=== PATIENT | male | born 1975 | race Caucasian/White ===

== ENCOUNTER → 2020-08-11 10:58 | Outpatient (BNVA) | payer BC, SELFPAY | PROVIDERS: PCP Internal Medicine; Visit Provider Surgery | DX: Z76.89 Persons encountering health services in other specified circumstances (principal) ==

== ENCOUNTER → 2020-08-16 14:43 | Outpatient (BNVA) | payer BC, SELFPAY | PROVIDERS: PCP Internal Medicine; Visit Provider Surgery | DX: Z76.89 Persons encountering health services in other specified circumstances (principal) ==

== ENCOUNTER 2020-10-08 17:52 | Emergency (ER) | payer BC, SELFPAY | END 2020-10-08 18:59 | disposition left against medical advice (07) | PROVIDERS: Emergency Provider Emergency Medicine | DX: R10.9 Unspecified abdominal pain (principal) ==

== ENCOUNTER 2020-10-09 01:17 | Inpatient (IN) | payer BC, SELFPAY ==
[2020-10-09] VITALS (11 sets, daily range): BP systolic 110–148; BP diastolic 66–87; PULSE 50–57; RESP 12–20; TEMP 36.1–36.8; O2SAT 96–100; BMI 26.9
--- NOTE | 2020-10-09 02:12 | ECG_ITS ---
Test Reason : ABDOMINAL PAIN Blood Pressure : / mmHG Vent. Rate : 056 BPM Atrial Rate : 056 BPM P-R Int : 150 ms QRS Dur : 104 ms QT Int : 428 ms P-R-T Axes : 084 052 022 degrees QTc Int : 413 ms Sinus bradycardia Possible Left atrial enlargement Borderline ECG When compared with ECG of 16-JAN-2008 03:59, Vent. rate has decreased BY [address] elevation has replaced ST depression in Lateral leads T wave inversion less evident in Inferior leads T wave inversion no longer evident in Lateral leads Referred By: Gricel Brunner Electronically Signed By:ADIS CAMACHO
--- NOTE | 2020-10-09 02:12 | US_ITS ---
EXAMINATION: ABDOMINAL ULTRASOUND LIMITED CLINICAL INFORMATION: Right upper quadrant and epigastric pain. COMPARISON: None. TECHNIQUE: Real-time imaging of the right upper quadrant abdominal viscera. FINDINGS: PANCREAS: The visualized pancreatic head and body are normal in appearance. The remainder of the pancreas is obscured from visualization by the overlying bowel gas. LIVER: The liver is of normal size and echogenicity without focal lesions nor intrahepatic biliary ductal dilation. GALLBLADDER: There are calculi within the gallbladder lumen. In addition, there is echogenic bile. There is a focal area of gallbladder wall thickening measuring approximately 5 mm. There is no pericholecystic fluid. COMMON BILE DUCT: Normal in caliber measuring 0.4 cm in diameter. RIGHT KIDNEY: Normal. No hydronephrosis. No renal calculi or focal parenchymal lesions. The kidney measures 11.2 cm in maximum dimension. FREE FLUID: None. US/US abdomen limited IMPRESSION: Cholelithiasis with focal gallbladder wall thickening, though there is no demonstrable pericholecystic fluid.
--- NOTE | 2020-10-09 02:12 | ED_ITS ---
HPI - Abdominal Pain General Chief Complaint: Abdominal Pain Stated Complaint: ABD PAIN Time Seen by Provider: 10/09/20 02:11 Source: patient Mode of arrival: ambulatory History of Present Illness HPI narrative: This is a 44-year-old male who presents with 2 days significant right upper quadrant pain/epigastric pain, nonradiating that typically starts 2 hours after consuming a meal and is associated with significant nausea but no vomiting and patient also denies any fever, chills but is having some diarrhea. Otherwise, he denies shortness of breath, chest pain/palpitations, urinary pain/burning/frequency. Patient states that the pain is improving at present. Related Data Home Medications Medication Instructions Recorded Confirmed aspirin 81 mg tablet,delayed 81 mg PO DAILY 08/11/20 10/09/20 release atorvastatin 80 mg tablet 80 mg PO DAILY 08/11/20 10/09/20 cholestyramine (with sugar) 4 gram 1 g PO BID 08/11/20 10/09/20 oral powder lisinopril 10 mg tablet 10 mg PO DAILY 08/11/20 10/09/20 metoprolol succinate 50 mg 50 mg PO DAILY 08/11/20 10/09/20 tablet,extended release 24 hr sildenafil 1 tab PO DAILY PRN 10/09/20 10/09/20 Allergies Allergy/AdvReac Type Severity Reaction Status Date / Time No Known Allergies Allergy Verified 08/11/20 11:14 [No Known Allergies*] Review of Systems Review of Systems Pertinent positives and negatives as stated in HPI and 10 point review of systems is otherwise negative. Physical Exam Vital Signs: Vital Signs: Last Vital Signs Temp 97.7 F 10/09/20 01:24 Pulse 56 10/09/20 04:00 Resp 12 10/09/20 04:00 BP 123/84 10/09/20 04:00 Pulse Ox 96 10/09/20 04:00 Body Mass Index 26.9 VITAL SIGNS: Reviewed. GENERAL: Well developed, well nourished, in no acute distress. HEAD: Normocephalic/atraumatic, OROPHARYNX: no oral lesions noted, posterior pharynx clear and non-erythematous without noted tonsillar enlargement/erythema/exudates NECK: Supple, no adenopathy LUNGS: Normal breath sounds. No adventitious sounds or accessory muscle use. SpO2<100> CARDIOVASCULAR: Regular rate and rhythm without noted murmurs, no JVD or lower extremity edema. ABDOMEN: Soft, mild tenderness at epigastrium and right upper quadrant without rebound/Riley's, non-distended with bowel sounds. No rigidity. No guarding. No palpable masses or hernias noted MUSCULOSKELETAL: No tenderness, deformities, or effusions noted on gross inspection. EXTREMITIES: No cyanosis, clubbing or edema. SKIN: Inspection of the skin reveals no rashes, ulcerations, jaundice, pallor, or petechiae. NEUROLOGIC: Alert and oriented x 4. . Course Course Course Narrative: This is a 44-year-old male with history and clinical presentation suggestive of possible cholecystitis, choledocholithiasis, biliary pancreatitis, gastritis. -labs, UA, EKG On review of all investigations the combination of elevated LFTs in conjunction with lipase and CT findings of gallbladder wall thickening/stones/pericholecystic fluid patient has most likely biliary duran creatitis/cholecystitis. He will be admitted and was informed of all results and findings. Reevaluation(s) Reevaluation #1: Discussed the case with Dr. Jacobsen who agrees that possibly there was an obstruction that has since resolved, but states that there are ERCP resources and recommends MRCP tomorrow. Time: 04:09 Reevaluation #2: Discussed the case with Dr Wray who will admit the patient. Time: 04:35 MDM - Abdominal Pain Lab Data Result diagrams: 10/09/20 02:23 10/09/20 02:22 Labs: Lab Results 10/09/20 10/09/20 10/09/20 Range/Units 02:22 02:23 04:14 WBC 4.9 (4.8-10.8) X10*3/uL RBC 5.11 (4.60-5.80) X10*6/uL Hgb 15.0 (14.0-18.0) g/dl Hct 45.1 (42-52) % MCV 88.3 (80-98) fL MCH 29.4 (27.0-33.0) pg MCHC 33.3 (31.0-36.0) g/dl RDW 11.7 (11.0-16.0) % Plt Count 172 (160-400) X10*3/uL MPV 9.8 (9.4-12.4) fL Immature Gran % (Auto) 0.2 (0.0-0.4) % Neut % (Auto) 68.2 (45-73) % Lymph % (Auto) 15.8 L (20-40) % [place] % (Auto) 12.1 H (2-11) % Eos % (Auto) 2.7 (0-4) % Baso % (Auto) 1.0 (0-2) % Lymph # (Auto) 0.8 L (1.2-4.9) X10*3/uL [place] # (Auto) 0.6 (0.1-1.2) X10*3/uL Eos # (Auto) 0.1 (0.0-0.4) X10*3/uL Baso # (Auto) 0.1 (0.0-0.2) X10*3/uL Abs Immat Gran (auto) 0.01 (0.00-0.03) X10*3/uL Absolute Neuts (auto) 3.3 (2.0-8.3) X10*3/uL Absolute Nucleated RBC 0.000 (0.0-0.012) X10*3/uL Nucleated RBC % (auto) 0.0 (0.0-0.2) /100WBC Sodium 139 (135-145) mmol/L Potassium 4.0 (3.3-5.1) mmol/l Chloride 105 (96-108) mmol/L Carbon Dioxide 24 (22-29) mmol/L Anion Gap 14 (12-20) BUN 20 H (9-16) mg/dL Creatinine 1.07 (0.5-1.4) mg/dL Estim Creat Clear Calc 96.6 Estimated GFR > 60 Random Glucose 100 (60-115) mg/dL Calcium 8.6 (8.4-10.2) mg/dL Total Bilirubin 2.9 H (0.0-1.0) mg/dL AST 600 H (5-37) U/L ALT 671 H (0-40) U/L Alkaline Phosphatase 145 H (39-117) U/L Total Protein 6.5 (6.5-8.0) g/dL Albumin 3.9 (3.5-5.0) g/dL Lipase 91 H (8-78) U/L COVID-19 (CIELO) Negative (Negative) COVID-19 Clin Com See Note ECG Data Attestation: I personally reviewed and interpreted this ECG as follows: Prior ECG tracings: available for review (11/27/2019) Interpretation: Sinus bradycardia, HR-56, no evidence of acute ischemia, UT/QTC are within Discharge Plan Discharge Clinical Impression: Cholecystitis Pancreatitis Qualifiers: Chronicity: acute Pancreatitis type: biliary Acute pancreatitis complication: no infection or necrosis Qualified Code(s): K85.10 - Biliary acute pancreatitis without necrosis or infection Patient Disposition: Admitted As Inpatient [facility] Past Medical History Source: nursing notes reviewed Medical History Asthma GERD (gastroesophageal reflux disease) HTN (hypertension) Neck fracture Surgical History H/O left inguinal hernia repair History of appendectomy Social History Social History Alcohol intake: former Smoking Status: Former smoker Smoked in Last 30 Days: No Use of substances other than those prescribed or required for medical reasons: Yes Substance Use Type: Marijuana Advance Directives: No
[2020-10-09 02:30] LABS: Basophils Absolute Auto 0.1 X10*3/uL (0.0-0.2); Eosinophils Absolute Auto 0.1 X10*3/uL (0.0-0.4); Eosinophils Percent Auto 2.7 % (0-4); Hematocrit 45.1 % (42-52); Imm Gran Abs Auto 0.01 X10*3/uL (0.00-0.03); Imm Gran Pct Auto 0.2 % (0.0-0.4); Lymphocytes Absolute Auto 0.8 X10*3/uL (1.2-4.9); Lymphocytes Percent Auto 15.8 % (20-40); MANUAL DIFF FLAG NO; Mean Corpuscular HGB Conc 33.3 g/dl (31.0-36.0); Mean Corpuscular Hemoglobin 29.4 pg (27.0-33.0); Mean Corpuscular Volume 88.3 fL (80-98); Mean Platelet Volume 9.8 fL (9.4-12.4); Monocytes Absolute Auto 0.6 X10*3/uL (0.1-1.2); Monocytes Percent Auto 12.1 % (2-11); Neutrophils Absolute Auto 3.3 X10*3/uL (2.0-8.3); Neutrophils Percent Auto 68.2 % (45-73); Platelet Count 172 X10*3/uL (160-400); Red Blood Count 5.11 X10*6/uL (4.60-5.80); Red Cell Distribution Width 11.7 % (11.0-16.0); White Blood Count 4.9 X10*3/uL (4.8-10.8)
[2020-10-09 02:57] LABS: Alanine Aminotransferase 671 U/L (0-40); Albumin Level 3.9 g/dL (3.5-5.0); Alkaline Phosphatase 145 U/L (39-117); Anion Gap 14 (12-20); Aspartate Amino Transferase 600 U/L (5-37); Bilirubin Total 2.9 mg/dL (0.0-1.0); Blood Urea Nitrogen 20 mg/dL (9-16); Calcium 8.6 mg/dL (8.4-10.2); Carbon Dioxide 24 mmol/L (22-29); Chloride 105 mmol/L (96-108); Creatinine Clr Calc Pharmacy 96.6; Estimated Glomerular Filt Rate > 60; Glucose Random 100 mg/dL (60-115); Sodium 139 mmol/L (135-145); Total Protein 6.5 g/dL (6.5-8.0)
[2020-10-09 03:11] LABS: Lipase 91 U/L (8-78)
[2020-10-09] MEDS: HYDROmorphone HCl 0.5 MG/0.5 ML SYRINGE 0.25 MG IVPUSH (03:30)
--- NOTE | 2020-10-09 03:38 | CT_ITS ---
EXAMINATION: CT ABDOMEN AND PELVIS WITH CONTRAST CLINICAL INFORMATION: Right upper quadrant pain. COMPARISON: Same day ultrasound. TECHNIQUE: Contiguous axial thin section helical images of the abdomen and pelvis were performed following the administration of 85 mL of intravenous Omnipaque 3-50. The data set was reformatted in the coronal and sagittal planes and reviewed on an independent workstation. DLP: 585 mGy-cm. FINDINGS: The visualized lung bases are clear. The visualized portions of the heart are unremarkable. The liver is of normal size and attenuation without focal lesions nor intrahepatic biliary ductal dilation. There are a few small calculi within the gallbladder lumen. There is mild wall thickening measuring 4 mm. There is trace adjacent pericholecystic fluid. The spleen, pancreas, adrenal glands are unremarkable. Both kidneys are of normal size and attenuation without hydronephrosis or nephrolithiasis. Following the administration of IV contrast, prompt symmetric nephrograms are displayed. There is no abdominal free fluid. There is neither mesenteric nor retroperitoneal lymphadenopathy. Normal unopacified loops of small and large bowel are identified. There is no pelvic free fluid. The urinary bladder is unremarkable. There is neither pelvic nor inguinal lymphadenopathy. Bone windows: Neither sclerotic nor lytic bone lesions are identified. CT/CT abdomen pelvis w con IMPRESSION: Cholelithiasis with mild gallbladder wall thickening and a small amount of pericholecystic free fluid. Automated exposure control (Care Dose) Adjustment of the mA and/or kv according to patient size (this includes techniques or standardized protocols for targeted exams where dose is matched to indication / reason for exam; i.e. extremities or head).
[2020-10-09] MEDS: iohexoL 350 MG/ML 100 ML INFUS..BTL 85 ML IV (04:01)
[2020-10-09] MEDS: 0.9 % Sodium Chloride 1,000 ML 999 ML IV (04:12)
[2020-10-09 04:32] LABS: COVID-19 Test Negative (Negative)
[2020-10-09] MEDS: HYDROmorphone HCl 0.5 MG/0.5 ML SYRINGE IVPUSH ×4 (04:46→18:33)
[2020-10-09] MEDS: Piperacillin Sodium/Tazobactam 3.375 GM in 0.9 % Sodium Chloride 50 ML IV (05:37)
--- NOTE | 2020-10-09 05:39 | P.HPGS_ITS ---
History of Present Illness History of Present Illness Date of Service: 10/09/20 Chief complaint: CHOLECYSTITIS,CHOLEDUCHOLITHIASIS Narrative: Akbar Horner is a 44 year old male presenting with complaints of abdominal pain in the epigastrium radiating to the right upper quadrant. The pa in began shortly after eating [place] dinner which included prime rib. He has had several other episodes of abdominal pain since then always after eating. He reports nausea without vomiting. He denies fever or chills. He also reports several episodes of diarrhea. He denies a prior history of similar abdominal pain. He presented to the emergency department and was noted to be tender in the right upper quadrant. An ultrasound and CT of the abdomen seemed indicate a thickened gallbladder wall suggestive of acute cholecystitis due to cholelithiasis. LFTs were noted to be elevated and lipase was also slightly elevated suggestive of a common bile duct stone. Review of Systems Constitutional: Constitutional: Denies chills, Denies fever(s), Denies headache(s) and Denies poor appetite ENT: Denies dizziness and Denies headache(s) Cardiovascular: Cardiovascular: Denies chest pain, Denies rapid heart rate, Denies palpitations and Denies slow heart rate Respiratory: Respiratory: Denies chest congestion, Denies cough, Denies pain o n inspiration and Denies wheezing Gastrointestinal: Gastrointestinal: Reports abdominal pain, Reports bloating, Denies change in stool character, Denies constipation, Reports diarrhea, Reports nausea, Denies vomiting and Denies hematemesis Musculoskeletal: Musculoskeletal: Denies back pain, Denies arthralgias, Denies joint swelling and Denies numbness Integumentary/Breasts: Skin/Breast: Denies change in pigmentation, Denies erythema and Denies rash Neurologic: Denies confusion, Denies dizziness, Denies headache(s) and Denies numbness Psychiatric: Psychiatric: Denies anxiety, Denies confusion and Denies depression Endocrine: Endocrine: Denies palpitations Hematologic/Lymphatic: Hematologic/Lymphatic: Denies easy bleeding, Denies easy bruising and Denies lymphadenopathy Allergic/Immunologic: Allergic/Immunologic: Denies wheezing PMFSH Past Medical History Medical History Asthma GERD (gastroesophageal reflux disease) HTN (hypertension) Neck fracture Surgical History Surgical History H/O left inguinal hernia repair History of appendectomy Social History Social History Alcohol intake: former Smoking Status: Former smoker Smoked in Last 30 Days: No Use of substances other than those prescribed or required for medical reasons: Yes Substance Use Type: Marijuana Advance Directives: No Meds Allergies Allergy/AdvReac Type Severity Reaction Status Date / Time No Known Allergies Allergy Verified 08/11/20 11:14 [No Known Allergies*] Home Medications Medication Instructions Recorded Confirmed Type aspirin 81 mg tablet,delayed 81 mg PO DAILY 08/11/20 10/09/20 History release atorvastatin 80 mg tablet 80 mg PO DAILY 08/11/20 10/09/20 History cholestyramine (with sugar) 4 gram 1 g PO BID 08/11/20 10/09/20 History oral powder lisinopril 10 mg tablet 10 mg PO DAILY 08/11/20 10/09/20 History metoprolol succinate 50 mg 50 mg PO DAILY 08/11/20 10/09/20 History tablet,extended release 24 hr sildenafil 1 tab PO DAILY PRN 10/09/20 10/09/20 History Physical Exam Vital Signs: Vital Signs: Last Vital Signs Temp 97.7 F 10/09/20 01:24 Pulse 56 10/09/20 04:00 Resp 12 10/09/20 04:00 BP 123/84 10/09/20 04:00 Pulse Ox 96 10/09/20 04:00 Body Mass Index 26.9 Const: General: cooperative, comfortable and well developed; No confusion Nutritional Appearance: well nourished Orientation/consciousness: patient oriented x3 and No confusion Eyes: Sclerae: sclerae normal EOM: EOMs intact bilaterally Neck: Neck: Yes normal visual inspection Resp: Effort & Inspection: normal respiratory effort, no cough and no respiratory distress Cardio: Jugular venous distension: no JVD Rate: regular rate Rhythm: regular rhythm GI: Inspection: Yes normal to inspection Palpation (GI): Soft to palpation, Tenderness to palpation present (GI) in the epigastrum, in the RUQ and Riley's sign positive; with no rebound tenderness, no guarding and not rigid Percussion: Yes normal to percussion Auscultation: normal bowel sounds Skin: General skin exam: dry skin Rashes: no rashes Neuro: General: patient oriented x3, no focal motor deficits and No confusion Extrem: General: Yes full ROM and Yes no clubbing, cyanosis or edema Results Results Labs: Short CBC 10/09/20 Range/Units 02:23 WBC 4.9 (4.8-10.8) X10*3/uL Hgb 15.0 (14.0-18.0) g/dl Hct 45.1 (42-52) % Plt Count 172 (160-400) X10*3/uL BMP 10/09/20 02:22 Sodium 139 Potassium 4.0 Chloride 105 Carbon Dioxide 24 BUN 20 H Creatinine 1.07 Calcium 8.6 Liver Function 10/09/20 Range/Units 02:22 Total Bilirubin 2.9 H (0.0-1.0) mg/dL AST 600 H (5-37) U/L ALT 671 H (0-40) U/L Alkaline Phosphatase 145 H (39-117) U/L Albumin 3.9 (3.5-5.0) g/dL EXAMINATION: CT ABDOMEN AND PELVIS WITH CONTRAST CLINICAL INFORMATION: Right upper quadrant pain. COMPARISON: Same day ultrasound. TECHNIQUE: Contiguous axial thin section helical images of the abdomen and pelvis were performed following the administration of 85 mL of intravenous Omnipaque 3-50. The data set was reformatted in the coronal and sagittal planes and reviewed on an independent workstation. DLP: 585 mGy-cm. FINDINGS: The visualized lung bases are clear. The visualized portions of the heart are unremarkable. The liver is of normal size and attenuation without focal lesions nor intrahepatic biliary ductal dilation. There are a few small calculi within the gallbladder lumen. There is mild wall thickening measuring 4 mm. There is trace adjacent pericholecystic fluid. The spleen, pancreas, adrenal glands are unremarkable. Both kidneys are of normal size and attenuation without hydronephrosis or nephrolithiasis. Following the administration of IV contrast, prompt symmetric nephrograms are displayed. There is no abdominal free fluid. There is neither mesenteric nor retroperitoneal lymphadenopathy. Normal unopacified loops of small and large bowel are identified. There is no pelvic free fluid. The urinary bladder is unremarkable. There is neither pelvic nor inguinal lymphadenopathy. Bone windows: Neither sclerotic nor lytic bone lesions are identified. CT/CT abdomen pelvis w con IMPRESSION: Cholelithiasis with mild gallbladder wall thickening and a small amount of pericholecystic free fluid. Automated exposure control (Care Dose) Adjustment of the mA and/or kv according to patient size (this includes techniques or standardized protocols for targeted exams where dose is matched to indication / reason for exam; i.e. extremities or head). Dictated By:DIANNE MCGEE MD Signed By:<Electronically signed by DIANNE MCGEE MD in OV>10/09/20 2662 Assessment and Plan (1) Cholecystitis: Status: Acute (2) Pancreatitis: Qualifiers: Acute pancreatitis complication: no infection or necrosis Chronicity: acute Pancreatitis type: biliary Qualified Code(s): K85.10 - Biliary acute pancreatitis without necrosis or infection Status: Acute (3) Choledocholithiasis with acute cholecystitis: Status: Acute 44-year-old male presenting with complaints of right upper quadrant epigastric abdominal pain associated with fatty food intake. CT and ultrasound indicate cholelithiasis with thickened gallbladder wall suggestive of acute cholecystitis. Elevated LFTs are suggestive of choledocholithiasis. He will be admitted to the surgical service and started on IV fluids and IV antibiotics. The LFTs will be trended. If they remain elevated ERCP may be required. I discussed the plan with the patient he expresses understanding and agrees with the plan. Once we assure the LFTs are improved I suggested proceeding to a laparoscopic or possible open cholecystectomy.
[2020-10-09] MEDS: Metoprolol Succinate ER 50 MG TAB.ER.24H PO (09:05)
[2020-10-09] MEDS: 0.9 % Sodium Chloride Flush 3 ML SYRINGE IVFLUSH ×2 (09:05→16:06)
[2020-10-09] MEDS: Atorvastatin Calcium 80 MG TABLET PO (09:05)
[2020-10-09] MEDS: lisinopriL 10 MG TABLET PO (09:05)
[2020-10-09] MEDS: Dextrose 5 % and Lactated Ring 1,000 ML 125 ML IVCONT ×2 (09:06→18:13)
--- NOTE | 2020-10-09 09:30 | MHC.CM.PN ---
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 The goal for dc is to return home, no services and CM has initiated and will follow for dc planning. PCP is Dr. Guy Alvarado.
[2020-10-09 14:18] LABS: Alanine Aminotransferase 715 U/L (0-40); Albumin Level 3.4 g/dL (3.5-5.0); Alkaline Phosphatase 158 U/L (39-117); Aspartate Amino Transferase 414 U/L (5-37); Bilirubin Direct 0.8 mg/dL (0.0-0.5); Bilirubin Total 2.6 mg/dL (0.0-1.0); Total Protein 5.5 g/dL (6.5-8.0)
[2020-10-09] MEDS: ondansetron HCL 4 MG/2 ML VIAL IVPUSH (16:06)
[2020-10-09] MEDS: oxyCODONE HCl Immed Release 5 MG TABLET PO (16:21)
--- NOTE | 2020-10-10 | MR_ITS ---
EXAMINATION: MR ABDOMEN WITHOUT CONTRAST CLINICAL INFORMATION: Epigastric abdominal pain, elevated LFTs.. Question stone. COMPARISON: None. TECHNIQUE: Three plane T2 FSE, thick slab MRCP and axial T1 SPGR dual echo and gradient echo sequences of liver and biliary ducts were obtained. FINDINGS: LUNG BASES: The visualized lung bases are unremarkable. LIVER, GALLBLADDER, AND BILIARY TREE: The liver is normal in size, smooth in contour, and normal in signal. No focal hepatic lesion or biliary ductal dilatation is present. On MRCP, there is no ductal dilatation or intraluminal filling defect. The gallbladder is unremarkable with no evidence of gallbladder wall thickening, or obvious pericholecystic inflammatory changes. PANCREAS: Unremarkable. SPLEEN: Unremarkable. ADRENAL GLANDS: Unremarkable. KIDNEYS AND URETERS: The kidneys are normal in size and shape. No hydronephrosis. No perinephric stranding. GASTROINTESTINAL TRACT: The bowel loops are nondistended. LYMPHOVASCULAR STRUCTURES: The abdominal aorta is normal caliber. No retrocrural mass or lymph node seen. ABDOMINAL WALL: Unremarkable. MR/MR MRCP IMPRESSION: The CBD is normal caliber with no intraluminal filling defect. The intrahepatic ducts and the liver appear unremarkable. The rest of the visualized abdomen is unremarkable.
[2020-10-10] MEDS: oxyCODONE HCl Immed Release 5 MG TABLET PO ×2 (00:17→17:06)
[2020-10-10] MEDS: Dextrose 5 % and Lactated Ring 1,000 ML 125 ML IVCONT ×3 (02:57→18:12)
[2020-10-10 04:00] VITALS: BP 110/69; PULSE 67; RESP 18; TEMP 36.6; O2SAT 97
[2020-10-10] MEDS: HYDROmorphone HCl 0.5 MG/0.5 ML SYRINGE IVPUSH ×2 (04:01→14:13)
[2020-10-10] MEDS: ondansetron HCL 4 MG/2 ML VIAL IVPUSH ×2 (04:01→17:05)
[2020-10-10 08:00] VITALS: BP 145/74; PULSE 78; RESP 18; TEMP 37.1; O2SAT 98
--- NOTE | 2020-10-10 08:01 | P.PNGS_ITS ---
Subjective Subjective Date of Service: 10/10/20 Interval history: Patient reports continued abdominal discomfort, reports a poor night of sleeping due to a draft from his window. Physical Exam Vital Signs: Vital Signs: Last Vital Signs Temp 98 F 10/10/20 04:00 Pulse 67 10/10/20 04:00 Resp 18 10/10/20 04:00 BP 110/69 10/10/20 04:00 Pulse Ox 97 10/10/20 04:00 Body Mass Index 26.9 Const: Other: Appears uncomfortable but in no acute distress General: healthy appearing Eyes: Other: Possible icterus Sclerae: scleral abnormal Resp: Other: Breathing comfortably on room air, no respiratory distress Cardio: Jugular venous distension: no JVD GI: Other: Soft, epigastric tenderness, nondistended, no rebound or guarding Skin: Other: Warm and dry, no rash Extrem: Other: Full range of motion, no edema Progress Note: A&P Assessment and plan (1) Choledocholithiasis with acute cholecystitis: Status: Acute Assessment and Plan: Patient reports continued abdominal pain mainly in the epigastrium, remains tender in this location as well. Repeat LFTs reveal continued elevated transaminases. Will recheck this morning and recheck pancreatic enzymes. Gastroenterology consult requested. Will hold on surgery for now. Fall Risk Details Current Medications: Current Medications Generic Name Dose Route Start Last Admin Trade Name Freq PRN Reason Stop Dose Admin Acetaminophen 650 mg 10/09/20 07:01 Acetaminophen Supp 650 Mg Supp.Rect TX Q6H PRN Pain, Mild (Pain Scale 1-3) Atorvastatin Calcium 80 mg 10/09/20 09:00 10/09/20 09:05 Atorvastatin Calcium 80 Mg Tablet PO 80 mg DAILY CARLEY Administration Cholestyramine Resin 1 gm 10/09/20 09:00 10/09/20 21:05 Cholestyramine (With Sugar) 4 Gm Powd.Pack PO Not Given BID CARLEY Hydromorphone HCl 0.5 mg 10/09/20 04:56 10/10/20 04:01 Hydromorphone Hcl 0.5 Mg/0.5 Ml Syringe IVPUSH 0.5 mg Q4H PRN Administration Pain, Severe (Pain Scale 7-10) Dextrose/Lactated Ringer's 1,000 mls @ 125 mls/hr 10/09/20 07:01 10/10/20 02:57 D5lr IVCONT 125 mls/hr .Q8H CARLEY Administration Lisinopril 10 mg 10/09/20 09:00 10/09/20 09:05 Lisinopril 10 Mg Tablet PO 10 mg DAILY CARLEY Administration Protocol Metoprolol Succinate 50 mg 10/09/20 09:00 10/09/20 09:05 Metoprolol Succinate Er 50 Mg Tab.Er.24h PO 50 mg DAILY CARLEY Administration Protocol Ondansetron HCl 4 mg 10/09/20 04:56 10/10/20 04:01 Ondansetron Hcl 4 Mg/2 Ml Vial IVPUSH 4 mg Q8H PRN Administration Nausea and Vomiting Oxycodone HCl 5 mg 10/09/20 07:01 10/10/20 00:17 Oxycodone Hcl Immed Release 5 Mg Tablet PO 5 mg Q6H PRN Administration Pain, Moderate (Pain Scale 4-6 Sodium Chloride 3 ml 10/09/20 08:00 10/10/20 00:13 0.9 % Sodium Chloride Flush 3 Ml Syringe IVFLUSH Not Given QSHIFT [facility] Zolpidem Tartrate 5 mg 10/09/20 07:01 Zolpidem Tartrate 5 Mg Tablet PO BEDTIME PRN Insomnia Time Spent With Patient Time: Total time spent is greater than 50% in coordination of care (as documented) at patient's floor/unit and/or counseling patient: Time with patient: 15 - 24 minutes
[2020-10-10 08:52] LABS: Alanine Aminotransferase 496 U/L (0-40); Albumin Level 3.5 g/dL (3.5-5.0); Alkaline Phosphatase 153 U/L (39-117); Aspartate Amino Transferase 166 U/L (5-37); Bilirubin Direct 0.7 mg/dL (0.0-0.5); Bilirubin Total 2.1 mg/dL (0.0-1.0); Total Protein 5.5 g/dL (6.5-8.0)
[2020-10-10 08:53] LABS: Amylase 60 U/L (28-100); Lipase 51 U/L (8-78)
[2020-10-10 09:17] VITALS: BP 110/69; PULSE 67
[2020-10-10] MEDS: 0.9 % Sodium Chloride Flush 3 ML SYRINGE IVFLUSH ×2 (09:17→14:13)
[2020-10-10] MEDS: Metoprolol Succinate ER 50 MG TAB.ER.24H PO (09:17)
[2020-10-10 09:20] VITALS: BP 110/69; PULSE 67
[2020-10-10] MEDS: lisinopriL 10 MG TABLET PO (09:20)
[2020-10-10 16:00] VITALS: BP 142/62; PULSE 60; RESP 19; TEMP 36; O2SAT 100
--- NOTE | 2020-10-10 20:28 | PM.EVENT ---
Event Note Date of Service: 10/10/20 Event Note: Asked about possible ERCP need for the patient, LFT downtrending, MRCP personally reviewed with Dr Don, no filling defect identified in CBD, but stones seen in GB. Given this data no indication for ERCP at this time, however if symptoms worsen and LFT start to rise then would re evaluate at that time, MRCP not always sensitive for distal CBD lesions. TH
[2020-10-11] VITALS (17 sets, daily range): BP systolic 130–151; BP diastolic 71–89; PULSE 63–80; RESP 16–20; TEMP 36.1–37.1; O2SAT 94–98
[2020-10-11] MEDS: oxyCODONE HCl Immed Release 5 MG TABLET PO ×4 (01:56→16:51)
[2020-10-11] MEDS: 0.9 % Sodium Chloride Flush 3 ML SYRINGE IVFLUSH ×2 (07:19→14:43)
--- NOTE | 2020-10-11 07:43 | MHC.SHP ---
Pre-Procedural Eval Section A The patient is an INPATIENT: Yes The History & Physical has been completed within 30 days and I have reviewed it.: Yes Section B Chief Complaint: CHOLECYSTITIS,CHOLEDUCHOLITHIASIS Allergies: Allergies Allergy/AdvReac Type Severity Reaction Status Date / Time No Known Allergies Allergy Verified 08/11/20 11:14 [No Known Allergies*] Plan Diagnosis/Plan: Unchanged I have reviewed the history and physical and performed a pertinent physical examination on my patient. No changes have occurred unless specified.
--- NOTE | 2020-10-11 08:35 | P.PNGS_ITS ---
Subjective Subjective Date of Service: 10/11/20 Interval history: REports some upper abdominal pain, denies nausea or vomiting Physical Exam Vital Signs: Vital Signs: Last Vital Signs Temp 97.9 F 10/11/20 07:18 Pulse 63 10/11/20 07:18 Resp 18 10/11/20 07:18 BP 130/80 10/11/20 07:18 Pulse Ox 96 10/11/20 07:18 Body Mass Index 26.9 Resp: Other: Breathing comfortably on room air, no respiratory distress GI: Other: Mild discomfort in upper abdomen, no rebound or guarding Skin: Other: Normal color, no rash Progress Note: A&P Assessment and plan (1) Choledocholithiasis with acute cholecystitis: Status: Acute Assessment and Plan: 44-year-old male patient presenting with complaints of upper abdominal pain found to have evidence of acute cholecystitis due to cholelithiasis as well as elevated liver function tests suggestive of choledocholithiasis. Subsequent workup with MRCP revealed a normal common bile duct. We discussed laparoscopic or possible open cholecystectomy including the procedure, risks, and alternatives. He expressed understanding and gives his consent to the surgery. He has been added onto the OR schedule for today. Fall Risk Details Current Medications: Current Medications Generic Name Dose Route Start Last Admin Trade Name Freq PRN Reason Stop Dose Admin Acetaminophen 650 mg 10/10/20 16:53 Acetaminophen 325 Mg Tablet PO Q6H PRN Headache Atorvastatin Calcium 80 mg 10/09/20 09:00 10/11/20 07:38 Atorvastatin Calcium 80 Mg Tablet PO Not Given DAILY CARLEY Cholestyramine Resin 1 gm 10/09/20 09:00 10/11/20 07:38 Cholestyramine (With Sugar) 4 Gm Powd.Pack PO Not Given BID CARLEY Hydromorphone HCl 0.5 mg 10/09/20 04:56 10/10/20 14:13 Hydromorphone Hcl 0.5 Mg/0.5 Ml Syringe IVPUSH 0.5 mg Q4H PRN Administration Pain, Severe (Pain Scale 7-10) Dextrose/Lactated Ringer's 1,000 mls @ 125 mls/hr 10/09/20 07:01 10/11/20 02:12 D5lr IVCONT Infused .Q8H CARLEY Infusion Lisinopril 10 mg 10/09/20 09:00 10/11/20 07:38 Lisinopril 10 Mg Tablet PO Not Given DAILY [facility] Protocol Metoprolol Succinate 50 mg 10/09/20 09:00 10/11/20 07:39 Metoprolol Succinate Er 50 Mg Tab.Er.24h PO Not Given DAILY [facility] Protocol Ondansetron HCl 4 mg 10/09/20 04:56 10/10/20 17:05 Ondansetron Hcl 4 Mg/2 Ml Vial IVPUSH 4 mg Q8H PRN Administration Nausea and Vomiting Oxycodone HCl 5 mg 10/09/20 07:01 10/11/20 08:00 Oxycodone Hcl Immed Release 5 Mg Tablet PO 5 mg Q6H PRN Administration Pain, Moderate (Pain Scale 4-6 Sodium Chloride 3 ml 10/09/20 08:00 10/11/20 07:19 0.9 % Sodium Chloride Flush 3 Ml Syringe IVFLUSH 3 ml QSHIFT CARLEY Administration Zolpidem Tartrate 5 mg 10/09/20 07:01 Zolpidem Tartrate 5 Mg Tablet PO BEDTIME PRN Insomnia Time Spent With Patient Time: Total time spent is greater than 50% in coordination of care (as documented) at patient's floor/unit and/or counseling patient: Time with patient: less than 15 minutes
--- NOTE | 2020-10-11 10:59 | MHC.CM.PN ---
Patient has been added on to the OR list (Cholecystitis).The goal for dc remains to be home, no services. CM will continue to follow for dc planning and possible need to adjust the dc plan.
[2020-10-11] MEDS: Lactated Ringers 1,000 ML 50 ML IVCONT (11:02)
--- NOTE | 2020-10-11 11:03 | PC.NURSE ---
patient stated he had a cardiac stent. added to hx. anesthesia aware.
--- NOTE | 2020-10-11 11:06 | HO.ANESPROP2 ---
HPI - Anesthesia Eval Consult details Narrative: 44 M w/ hx of CAD, cardiac stent x1 placed in 2016 following syncope; asymptomatic since; [facility] [place] [facility] Past Medical History Medical History Asthma GERD (gastroesophageal reflux disease) HTN (hypertension) Neck fracture Surgical History Surgical History H/O left inguinal hernia repair History of appendectomy Stented coronary artery Social History Social History Household Members: Family Housing: House Alcohol intake: former Smoking Status: Former smoker Substance Use Type: Marijuana service: No Current occupational status: employed Meds Allergies Allergy/AdvReac Type Severity Reaction Status Date / Time No Known Allergies Allergy Verified 08/11/20 11:14 [No Known Allergies*] Home Medications Medication Instructions Recorded Confirmed Type aspirin 81 mg tablet,delayed 81 mg PO DAILY 08/11/20 10/09/20 History release atorvastatin 80 mg tablet 80 mg PO DAILY 08/11/20 10/09/20 History cholestyramine (with sugar) 4 gram 1 g PO BID 08/11/20 10/09/20 History oral powder lisinopril 10 mg tablet 10 mg PO DAILY 08/11/20 10/09/20 History metoprolol succinate 50 mg 50 mg PO DAILY 08/11/20 10/09/20 History tablet,extended release 24 hr sildenafil 1 tab PO DAILY PRN 10/09/20 10/09/20 History Exam Exam Date and Time: October 11, 2020 1106 Height,Weight and Vital Signs: Height 6 ft Weight 89.9 kg Last Vital Signs Temp 98.7 F 10/11/20 10:21 Pulse 69 10/11/20 10:21 Resp 16 10/11/20 10:21 BP 135/88 10/11/20 10:21 Pulse Ox 97 10/11/20 10:21 Pertinent Lab Results Pertinent Lab Results: Laboratory Tests 10/09/20 10/09/20 10/09/20 02:22 02:23 04:14 WBC 4.9 RBC 5.11 Hgb 15.0 Hct 45.1 MCV 88.3 MCH 29.4 MCHC 33.3 RDW 11.7 Plt Count 172 MPV 9.8 Immature Gran % (Auto) 0.2 Neut % (Auto) 68.2 Lymph % (Auto) 15.8 L Barren % (Auto) 12.1 H Eos % (Auto) 2.7 Baso % (Auto) 1.0 Lymph # (Auto) 0.8 L Barren # (Auto) 0.6 Eos # (Auto) 0.1 Baso # (Auto) 0.1 Abs Immat Gran (auto) 0.01 Absolute Neuts (auto) 3.3 Absolute Nucleated RBC 0.000 Nucleated RBC % (auto) 0.0 Sodium 139 Potassium 4.0 Chloride 105 Carbon Dioxide 24 Anion Gap 14 BUN 20 H Creatinine 1.07 Estim Creat Clear Calc 96.6 Estimated GFR > 60 Random Glucose 100 Calcium 8.6 Total Bilirubin 2.9 H Direct Bilirubin AST 600 H ALT 671 H Alkaline Phosphatase 145 H Total Protein 6.5 Albumin 3.9 Amylase Lipase 91 H COVID-19 (CIELO) Negative COVID-19 Clin Com See Note 10/09/20 10/10/20 10/10/20 13:27 08:00 08:00 WBC RBC Hgb Hct MCV MCH MCHC RDW Plt Count MPV Immature Gran % (Auto) Neut % (Auto) Lymph % (Auto) Barren % (Auto) Eos % (Auto) Baso % (Auto) Lymph # (Auto) Barren # (Auto) Eos # (Auto) Baso # (Auto) Abs Immat Gran (auto) Absolute Neuts (auto) Absolute Nucleated RBC Nucleated RBC % (auto) Sodium Potassium Chloride Carbon Dioxide Anion Gap BUN Creatinine Estim Creat Clear Calc Estimated GFR Random Glucose Calcium Total Bilirubin 2.6 H 2.1 H Direct Bilirubin 0.8 H 0.7 H AST 414 H 166 H ALT 715 H 496 H Alkaline Phosphatase 158 H 153 H Total Protein 5.5 L 5.5 L Albumin 3.4 L 3.5 Amylase 60 Lipase 51 COVID-19 (CIELO) COVID-19 Clin Com Airway Mallampati Class: II TM Dist: >3cm Neck ROM: Full Loose/Missing/Broken Teeth: No Heart: RRR Lungs: NL Other: AO Assessment and Plan Assessment Anesthesia Assessment: Anesthesia Plan Discussed and Chart Reviewed Final Anesthetic Review NPO: Yes ASA Class: III Final Preanesthetic Review: No Changes in Pt Med Stat, Meds/Allgs Chart Reviewed, Consent Obtained/Reviewed and Anes Risks/Benef Reviewed Patient Risk: Intermediate Procedure Risk: Low Anesthetic Plan Anesthetic Plan: GA Disposition: Standard PACU
--- NOTE | 2020-10-11 12:18 | PM.OP ---
Brief Operative Note Date of Service: 10/11/20 Pre-op diagnosis: Acute cholecystitis, cholelithiasis, choledocholithiasis Post-op diagnosis: same Procedure: Laparoscopic cholecystectomy Implants: None Surgeon: Eliot Wray MD Anesthesia: GETA Estimated blood loss (mL): 5 Pathology: other (Gallbladder) Condition: stable Disposition: PACU
--- NOTE | 2020-10-11 12:20 | P.OP_ITS ---
Operative Note Operative Note Date of Service: 10/11/20 Narrative: Preoperative diagnosis: Acute cholecystitis, cholelithiasis, choledocholithiasis Postoperative diagnosis: Same Procedure: Laparoscopic cholecystectomy Surgeon: Eliot Wray MD Highway Painter Helper: No physician Anesthesia: General endotracheal Indications for procedure: 44-year-old male patient with complaints of abdominal pain in the upper abdomen found to have elevated liver function tests. CT of the abdomen and pelvis revealed a thickened gallbladder wall with evidence of pancreatitis. Subsequent MRCP was negative for choledocholithiasis. The patient was presumed to have passed a gallstone and LFTs have subsequently trended downward. Operative findings: Mildly inflamed gallbladder with thickened gallbladder wall and adhesions to the undersurface of the gallbladder. Specimen: Gallbladder Estimated blood loss: 5 mL Complications: None Procedure details: Patient was brought to the OR and placed in a supine position. After administering general anesthesia the patient's abdomen was prepped with ChloraPrep and draped in a sterile fashion. Local anesthesia consisting of 0.75% Sensorcaine with epinephrine was infiltrated in a periumbilical region. A 5 mm incision was made above the umbilicus in a transverse fashion. The Veress needle was then inserted while elevating abdominal cavity with towel clips. After positive drop test the abdomen was insufflated to a pressure of 15 mm of mercury. The Veress needle was then removed and a 5 mm trocar inserted. The camera was inserted in the abdomen explored. A 12 mm trocar was then placed in the epigastrium and 2 5 mm trocars placed in the right upper quadrant. The patient was placed in reverse Trendelenburg positioning and rotated to the left. The gallbladder was grasped with the fundus and retracted cephalad.. The infundibulum Was then grasped and retracted away from the liver bed. The Dolphin dissected was then used to dissect the peritoneum off the infundibulum to reveal the junction with the cystic duct. Cystic artery was noted slightly medial and posterior to the cystic duct. After obtaining a critical view the cystic duct was doubly clipped and divided. The cystic artery was then doubly clipped and divided. The gallbladder was then dissected off the liver bed using electrocautery with an L hook. Hemostasis was assured all times using the electrocautery. When the gallbladder is completely dissected off the liver bed was placed in an Endo- Catch bag and brought out through the epigastric incision. The gallbladder was sent to pathology for further examination. The abdomen was then re-examined. The liver bed was irrigated and suctioned dry. No bleeding or bile leak could be identified. CO2 was then evacuated and all trocars removed. Fascia was closed at the epigastric incision using a figur e-of-eight 0 Polysorb suture. Skin was closed in all incisions using a subcuticular 4 0 Polysorb suture. Sterile dressings consisting of Steri-Strips, 2 x 2 gauze, and Tegaderm were then applied. The patient tolerated the procedure well. Sponge instrument and needle counts reported as correct. The patient was transferred to PACU in stable condition.
[2020-10-11] MEDS: Ketorolac Tromethamine 15 MG/ML VIAL IVPUSH (13:12)
[2020-10-11] MEDS: HYDROmorphone HCl 0.5 MG/0.5 ML SYRINGE 0.25 MG IVPUSH ×2 (13:13→13:17)
[2020-10-11] MEDS: Dextrose 5 % and Lactated Ring 1,000 ML 125 ML IVCONT ×2 (14:43→22:32)
[2020-10-11] MEDS: Metoprolol Succinate ER 50 MG TAB.ER.24H PO (15:20)
[2020-10-11] MEDS: Aspirin Enteric Coated 81 MG TABLET.DR PO (15:34)
[2020-10-11] MEDS: Simethicone 80 MG TAB.CHEW PO (18:32)
[2020-10-11] MEDS: HYDROmorphone HCl 0.5 MG/0.5 ML SYRINGE IVPUSH (19:54)
[2020-10-11] MEDS: Zolpidem Tartrate 5 MG TABLET PO (22:33)
[2020-10-12] VITALS: BP 149/87; PULSE 61; RESP 18; TEMP 37; O2SAT 98
--- NOTE | 2020-10-12 | CT_ITS ---
EXAMINATION: CT ABDOMEN AND PELVIS WITH CONTRAST CLINICAL INFORMATION: Severe abdominal pain status post cholecystectomy. COMPARISON: 10/09/2020 TECHNIQUE: Multidetector volumetric images were obtained from the superior aspect of the liver through the pubic symphysis following administration 85 mL of Omnipaque 350 intravenous contrast. Sagittal and coronal reformatted images were obtained on the technologist's workstation. Oral contrast: No This CT examination was performed using dose optimization techniques as appropriate, variously including the following: *Automated exposure control *Adjustment of mA and/or kV according to patient size (this includes techniques or standardized protocols for targeted exams where dose is matched to indication/reason for exam; i.e. extremities or head) *Use of iterative reconstruction technique DLP: 537 mGy-cm FINDINGS: LUNG BASES: The visualized lung bases are unremarkable. LIVER, GALLBLADDER, AND BILIARY TREE: The liver is normal in size, shape, and attenuation. No focal hepatic lesion or biliary ductal dilatation is present. Cholecystectomy. Free air within the abdomen consistent with recent postoperative state. PANCREAS: Unremarkable. SPLEEN: Unremarkable. ADRENAL GLANDS: Unremarkable. KIDNEYS AND URETERS: The kidneys are normal in size, shape, and attenuation. No hydronephrosis, hydroureter, or calculi seen. No perinephric stranding. BLADDER: Unremarkable. GASTROINTESTINAL TRACT: The stomach is unremarkable. Normal caliber small bowel. No obstruction. No colonic wall thickening or acute inflammatory change. No free air or free fluid. ABDOMINAL WALL: No significant hernia is appreciated. Minimal gas in the subcutaneous fat of the anterior abdomen. LYMPH NODES: Normal. VASCULAR: Unremarkable. PELVIC VISCERA: The prostate and seminal vesicles are unremarkable. OSSEOUS STRUCTURES: No acute or suspicious osseous abnormality. CT/CT abdomen pelvis w con IMPRESSION: Status post cholecystectomy. Free air is present, as expected with recent operation. No acute abnormality in the abdomen or pelvis.
[2020-10-12] MEDS: HYDROmorphone HCl 0.5 MG/0.5 ML SYRINGE IVPUSH (00:07)
[2020-10-12] MEDS: 0.9 % Sodium Chloride Flush 3 ML SYRINGE IVFLUSH (00:07)
[2020-10-12] MEDS: oxyCODONE HCl Immed Release 5 MG TABLET PO (01:49)
[2020-10-12] MEDS: Simethicone 80 MG TAB.CHEW PO (01:50)
[2020-10-12 02:31] VITALS: BP 106/84; PULSE 87; RESP 20; O2SAT 99
--- NOTE | 2020-10-12 02:38 | XR_ITS ---
EXAMINATION: XR CHEST CLINICAL INFORMATION: Chest pain. Status post laparoscopic cholecystectomy. COMPARISON: 07/21/2014 TECHNIQUE: Frontal view of the chest was obtained. FINDINGS: Cervical fusion hardware. Elevated right hemidiaphragm. Bronchial wall thickening noted. No pleural effusion or pneumothorax. The cardiomediastinal silhouette is within normal limits. Free intraperitoneal air noted, corresponding to the recent surgery. XR/XR chest 1V IMPRESSION: Elevated right hemidiaphragm. No consolidation. Bronchial wall thickening can be seen with a small airways process such as asthma or atypical/viral infection.
--- NOTE | 2020-10-12 02:38 | ECG_ITS ---
Test Reason : CHEST PAIN Blood Pressure : / mmHG Vent. Rate : 069 BPM Atrial Rate : 069 BPM P-R Int : 142 ms QRS Dur : 104 ms QT Int : 422 ms P-R-T Axes : 075 042 009 degrees QTc Int : 452 ms Normal sinus rhythm Normal ECG When compared with ECG of 09-OCT-2020 02:22, No significant change was found Referred By: Ursula Miller Electronically Signed By:ADIS CAMACHO
[2020-10-12] MEDS: HYDROmorphone HCl 1 MG/ML SYRINGE IVPUSH (02:39)
[2020-10-12 02:40] VITALS: BP 141/96; PULSE 82; RESP 24; O2SAT 100
[2020-10-12 02:50] VITALS: BP 119/79; PULSE 77; RESP 24; O2SAT 100
[2020-10-12] MEDS: Morphine Sulfate 4 MG/ML CARTRIDGE IM (02:50)
[2020-10-12] MEDS: LORazepam 2 MG/ML VIAL 0.5 MG IVPUSH (02:55)
--- NOTE | 2020-10-12 03:02 | PM.EVENT ---
Event Note Date of Service: 10/12/20 Event Note: Patient is postop lap zelda today. A rapid response was called on this patient due to severe abdominal pain. Patient describes a stabbing sharp right upper quadrant abdominal pain right below his right lung, nonradiating, very severe where he is not even able to take deep breaths as well as unable to sit down due to the severity of the pain. Obtain chest x-ray, will obtain a stat pelvic/abdomen CT with contrast to rule out any complications postop. Basic labs including lipase, BMP, CBC, troponin have also been ordered awaiting findings. Labs show WBC count of 12.2 which is most likely reactive postop, patient has no fever, normal BMP. Chest x-ray showed elevated right hemidiaphragm no consolidation, bronchial wall thickening can be seen with a small airways process such as asthma or atypical viral infection. Abdomen pelvic CT showed status post cholecystectomy, with free air present as expected with recent operation with no acute abnormality in the abdomen and pelvis Patient received 1 mg of Dilaudid, 0.5 mg of Ativan, and 4 mg of IV morphine. Patient's pain seemed to be slightly more as tolerated, will prescribe an albuterol inhaler as he requests an incentive spirometry Further management per primary team
[2020-10-12 03:03] LABS: Basophils Absolute Auto 0.1 X10*3/uL (0.0-0.2); Basophils Percent Auto 0.7 % (0-2); Eosinophils Percent Auto 0.3 % (0-4); Hematocrit 46.1 % (42-52); Hemoglobin 15.6 g/dl (14.0-18.0); Imm Gran Abs Auto 0.03 X10*3/uL (0.00-0.03); Imm Gran Pct Auto 0.2 % (0.0-0.4); Lymphocytes Percent Auto 24.8 % (20-40); MANUAL DIFF FLAG NO; Mean Corpuscular HGB Conc 33.8 g/dl (31.0-36.0); Mean Corpuscular Hemoglobin 29.4 pg (27.0-33.0); Mean Platelet Volume 10.1 fL (9.4-12.4); Monocytes Absolute Auto 1.2 X10*3/uL (0.1-1.2); Monocytes Percent Auto 9.7 % (2-11); Neutrophils Absolute Auto 7.9 X10*3/uL (2.0-8.3); Neutrophils Percent Auto 64.3 % (45-73); Platelet Count 223 X10*3/uL (160-400); Red Cell Distribution Width 11.5 % (11.0-16.0); White Blood Count 12.2 X10*3/uL (4.8-10.8)
[2020-10-12] MEDS: iohexoL 350 MG/ML 100 ML INFUS..BTL 85 ML IV (03:17)
[2020-10-12 03:20] VITALS: BP 158/97; PULSE 77; RESP 20; TEMP 36.8; O2SAT 99
[2020-10-12 03:31] LABS: Anion Gap 17 (12-20); Blood Urea Nitrogen 8 mg/dL (9-16); Carbon Dioxide 21 mmol/L (22-29); Chloride 102 mmol/L (96-108); Creatinine Clr Calc Pharmacy 98.5; Estimated Glomerular Filt Rate > 60; Glucose Random 118 mg/dL (60-115); Lipase 46 U/L (8-78); Potassium 3.4 mmol/l (3.3-5.1); Sodium 137 mmol/L (135-145); Troponin-I High Sensitivity < 3.5 ng/L (<3.5-35.0)
[2020-10-12 06:29] LABS: MANUAL DIFF FLAG NO
[2020-10-12] MEDS: Dextrose 5 % and Lactated Ring 1,000 ML 125 ML IVCONT (06:35)
[2020-10-12 07:07] LABS: Basophils Percent Auto 0.3 % (0-2); Hematocrit 39.4 % (42-52); Hemoglobin 13.6 g/dl (14.0-18.0); Imm Gran Abs Auto 0.05 X10*3/uL (0.00-0.03); Imm Gran Pct Auto 0.4 % (0.0-0.4); Lymphocytes Percent Auto 8.7 % (20-40); Mean Corpuscular HGB Conc 34.5 g/dl (31.0-36.0); Mean Corpuscular Hemoglobin 29.4 pg (27.0-33.0); Mean Corpuscular Volume 85.3 fL (80-98); Mean Platelet Volume 10.5 fL (9.4-12.4); Monocytes Absolute Auto 1.2 X10*3/uL (0.1-1.2); Monocytes Percent Auto 10.4 % (2-11); Neutrophils Absolute Auto 9.4 X10*3/uL (2.0-8.3); Neutrophils Percent Auto 80.2 % (45-73); Platelet Count 172 X10*3/uL (160-400); Red Blood Count 4.62 X10*6/uL (4.60-5.80); Red Cell Distribution Width 11.5 % (11.0-16.0); White Blood Count 11.8 X10*3/uL (4.8-10.8)
--- NOTE | 2020-10-12 07:19 | PC.NURSE ---
Patient is a 44 year old male post op day 1 for zelda-lap procedure. alert and appropriate at 0000rounds, vitals stable, 4 dsgs d-i to colby mid abdomen, stating to have 7/10 [pain and medicated with 0.5mg dilaudid ivp at 0010. gait steady, voiding fine and into bed to try and sleep (noted pt received ambien previous shift for sleep. approx 0100, pt yelling out, pain is severe, hurts to take a deep breath, this is awful, whats happening. nursing supervisor smoke control called to help eval pt with me, explained introduction of air during his procedure, gas pain, ambulation, and splinting. patient agreeable and ambulated [address] with this food writer, voided, and back to bed again. 0150 pt yelling out in pain, holding his right upper side, medicated with oxycodone 5mg po and a simethicone tab. stated this will work, this is better, than this is awful, this pain is so severe, I cannot tolerate this it is sharp, increased with movement, swearing, unable to sit down, face red, than pale. vitals 106/84-87-20-98% room air. pt clutching his side, stating i cant move or breath, o2 applied, ASSISTANT PROJECT MANAGER call placed and , Nursing Dental Hygiene Instructor, Clinical [place] [facility] [place] [facility] vitals, [id number]. see details on ASSISTANT PROJECT MANAGER documentation given 1mg Dilaudid, 4mg morphine, 0.5mg Ativan, had cxr, ct scan of abd, labwork. All results noted with nothing acute or abnormal, wbc noted 12.2. patient however, unable to sleep after returning, oob to chair, yelling, than quiet, than nobody is helping me. pain improved, however, noted to be somewhat confused. reinforced safety, bed alarm activated while in bed, and monitored very closely. asking for an inhaler, but then not sure he has had one, then wanted a steam bath....ETC. comfort and explanations all provided for safety. patient finally into bed at 0630. report given and pt awaiting to see and talk to md on rounds.
[2020-10-12 07:22] LABS: Alanine Aminotransferase 260 U/L (0-40); Albumin Level 3.6 g/dL (3.5-5.0); Alkaline Phosphatase 116 U/L (39-117); Anion Gap 13 (12-20); Aspartate Amino Transferase 55 U/L (5-37); Bilirubin Direct 0.7 mg/dL (0.0-0.5); Bilirubin Total 1.7 mg/dL (0.0-1.0); Blood Urea Nitrogen 8 mg/dL (9-16); Calcium 8.3 mg/dL (8.4-10.2); Carbon Dioxide 23 mmol/L (22-29); Chloride 103 mmol/L (96-108); Creatinine Clr Calc Pharmacy 103.4; Estimated Glomerular Filt Rate > 60; Glucose Random 132 mg/dL (60-115); Potassium 3.1 mmol/l (3.3-5.1); Sodium 136 mmol/L (135-145); Total Protein 5.8 g/dL (6.5-8.0)
[2020-10-12 07:41] VITALS: BP 135/82; PULSE 95; RESP 18; TEMP 36.7; O2SAT 97
[2020-10-12] MEDS: lisinopriL 10 MG TABLET PO (08:13)
[2020-10-12] MEDS: Aspirin Enteric Coated 81 MG TABLET.DR PO (08:13)
[2020-10-12] MEDS: Cholestyramine (With Sugar) 4 GM POWD.PACK 1 GM PO (08:13)
[2020-10-12] MEDS: Atorvastatin Calcium 80 MG TABLET PO (08:13)
[2020-10-12] MEDS: Metoprolol Succinate ER 50 MG TAB.ER.24H PO (08:14)
--- NOTE | 2020-10-12 08:31 | PM.PNGS ---
Subjective Subjective Date of Service: 10/12/20 <Stephanie Solano PA-C - Last Filed: 10/12/20 08:42> 10/12/20 <Eliot Wray MD - Last Filed: 10/12/20 09:39> Interval history: Rapid response called last night for chest pain/severe abdominal pain, R side. Seen by hospitalist. CXR, CT abd/pelvis obtained- no acute abnormality. CBC, BMP, troponins obtained- only significant for leukocytosis, likely reactive and is downtrending. Patient received 1 mg of Dilaudid, 0.5 mg of Ativan, and 4 mg of IV morphine. This morning he continues to complain of severe RUQ abdominal pain that radiates to right shoulder- has not improved at all and reports medication last night night did not relieve pain. Denies nausea, dizziness, calf tenderness. He is very upset and states he wants to go home. <Stephanie Solano PA-C - Last Filed: 10/12/20 08:42> Physical Exam Vital Signs: Vital Signs: Last Vital Signs Temp 98.1 F 10/12/20 07:41 Pulse 95 10/12/20 07:41 Resp 18 10/12/20 07:41 BP 135/82 10/12/20 07:41 Pulse Ox 97 10/12/20 07:41 Body Mass Index 26.9 <Stephanie Solano PA-C - Last Filed: 10/12/20 08:42> Const: General: alert and other (in pain, uncomfortable) <Stephanie Solano PA-C - Last Filed: 10/12/20 08:42> Orientation/consciousness: patient oriented x3 <Stephanie Solano PA-C - Last Filed: 10/12/20 08:42> Eyes: Sclerae: sclerae normal <ALVARO Wallace Last Filed: 10/12/20 08:42> Resp: Effort & Inspection: normal respiratory effort <ALVARO Wallace Last Filed: 10/12/20 08:42> Auscultation: clear to auscultation bilaterally <Stephanie Solano PA-C - Last Filed: 10/12/20 08:42> Cardio: Rate: regular rate <Stephanie XiomaraALVARO zamora Last Filed: 10/12/20 08:42> Rhythm: regular rhythm <Stephanie XiomaraJASPAL zamoraTen Last Filed: 10/12/20 08:42> GI: Inspection: Yes distended (mild) and Yes incision (dressings intact, right flank dressing with small amount of blood staining) <Stephanie Solano PA-C Guillermo Last Filed: 10/12/20 08:42> Palpation (GI): Soft to palpation, Tenderness to palpation present (GI) in the RUQ; with no rebound tenderness, no guarding and not rigid <Stephanie Solano PA-C Guillermo Last Filed: 10/12/20 08:42> Auscultation: normal bowel sounds <Stephanie Solano PA-C Last Filed: 10/12/20 08:42> Skin: General skin exam: no rashes or lesions noted and no jaundice <MAURICIO WallaceGia Last Filed: 10/12/20 08:42> Neuro: General: patient oriented x3 <MAURICIO WallaceGia Last Filed: 10/12/20 08:42> Extrem: General: Yes normal to inspection, Yes no clubbing, cyanosis or edema and No calf tenderness <JASPAL WallaceTen Li Last Filed: 10/12/20 08:42> Progress Note: A&P Assessment and plan (1) Choledocholithiasis with acute cholecystitis: Status: Acute <Stephanie Solano PA-C Guillermo Filed: 10/12/20 08:42> (2) S/P laparoscopic cholecystectomy: Problem details: POD #1 <Stephanie Solano PA-C Last Filed: 10/12/20 08:42> Status: Acute <Stephanie Solano PA-C Last Filed: 10/12/20 08:42> Assessment and Plan: Persistent severe RUQ/right shoulder pain- work up essentially normal. Consistent with referred pain. VSS. Abd exam benign with appropriate post op tenderness, dressings intact. WBC and LFTs downtrending this morning. Encouraged strongly to get OOB and ambulate, IS use. Ofirmev, ketorolac added and dilaudid increased to 1mg IV q4h PRN. Will add oxycodone 10mg PO q4h PRN as well. Will reassess later today. Likely etiology of pain discussed with patient in detail. <Stephanie Solano PA-C - Last Filed: 10/12/20 08:42> Events of this morning noted. Appreciate input of rapid response team. Patient found ambulating in the hallways this morning reporting abdominal pain in the right upper quadrant occasional sharp jabs in the right shoulder. He reports the pain last evening started sudden felt he was having difficulty taking a deep breath. CT images reviewed; no evidence of bleeding or bile leak. Expected free air under the diaphragm noted following a laparoscopic procedure. Hiatal hernia noted with air in sac. Agree with the above assessment and plan. LFTs continue to down trend. He understands that he cannot go home boluses able to tolerate p.o. pain medication. I will check him later this afternoon. <Eliot Wray MD - Last Filed: 10/12/20 09:39> Fall Risk Details Current Medications: Current Medications Generic Name Dose Route Start Last Admin Trade Name Freq PRN Reason Stop Dose Admin Albuterol Sulfate 2 puff 10/12/20 06:18 Albuterol Sulfate 90 Mcg 8 Gm Inhaler INHALE RQ4H PRN Shortness of Breath/Wheezing Aspirin 81 mg 10/11/20 15:30 10/12/20 08:13 Aspirin Enteric Coated 81 Mg Tablet. PO 81 mg DAILY CARLEY Administration Atorvastatin Calcium 80 mg 10/09/20 09:00 10/12/20 08:13 Atorvastatin Calcium 80 Mg Tablet PO 80 mg DAILY CARLEY Administration Cholestyramine Resin 1 gm 10/09/20 09:00 10/12/20 08:13 Cholestyramine (With Sugar) 4 Gm Powd.Pack PO 1 gm BID CARLEY Administration Hydromorphone HCl 1 mg 10/12/20 07:45 Hydromorphone Hcl 0.5 Mg/0.5 Ml Syringe IVPUSH Q4H PRN Pain, Severe (Pain Scale 7-10) Dextrose/Lactated Ringer's 1,000 mls @ 125 mls/hr 10/09/20 07:01 10/12/20 06:35 D5lr IVCONT 125 mls/hr .Q8H CARLEY Administration Lactated Ringer's 500 mls @ 500 mls/hr 10/12/20 02:45 Lr IVCONT .Q1H PRN chest pain - hydration Acetaminophen 1,000 mg in 100 mls @ 400 mls/hr 10/12/20 07:45 Ofirmev IV 10/13/20 01:59 Q6H [facility] Ketorolac Tromethamine 30 mg 10/12/20 07:45 Ketorolac Tromethamine 15 Mg/Ml Vial IV Q6H [facility] Lisinopril 10 mg 10/09/20 09:00 10/12/20 08:13 Lisinopril 10 Mg Tablet PO 10 mg DAILY [facility] Administration Protocol Metoprolol Succinate 50 mg 10/09/20 09:00 10/12/20 08:14 Metoprolol Succinate Er 50 Mg Tab.Er.24h PO 50 mg DAILY [facility] Administration Protocol Ondansetron HCl 4 mg 10/09/20 04:56 10/10/20 17:05 Ondansetron Hcl 4 Mg/2 Ml Vial IVPUSH 4 mg Q8H PRN Administration Nausea and Vomiting Oxycodone HCl 5 mg 10/09/20 07:01 10/12/20 01:49 Oxycodone Hcl Immed Release 5 Mg Tablet PO 5 mg Q6H PRN Administration Pain, Moderate (Pain Scale 4-6 Oxycodone HCl 10 mg 10/12/20 07:44 Oxycodone Hcl Immed Release 5 Mg Tablet PO Q4H PRN Pain, Severe (Pain Scale 7-10) Simethicone 80 mg 10/11/20 18:16 10/12/20 01:50 Simethicone 80 Mg Tab.Chew PO 80 mg Q6H PRN Administration Gas Sodium Chloride 3 ml 10/09/20 08:00 10/12/20 08:16 0.9 % Sodium Chloride Flush 3 Ml Syringe IVFLUSH Not Given QSHIFT [facility] Zolpidem Tartrate 5 mg 10/09/20 07:01 10/11/20 22:33 Zolpidem Tartrate 5 Mg Tablet PO 5 mg BEDTIME PRN Administration Insomnia <Stephanie Solano PA-C - Last Filed: 10/12/20 08:42> Time Spent With Patient Time: Total time spent is greater than 50% in coordination of care (as documented) at patient's floor/unit and/or counseling patient: <Stephanie Solano PA-C - Last Filed: 10/12/20 08:42> Time with patient: 15 - 24 minutes <Stephanie Solano PA-C - Last Filed: 10/12/20 08:42>
[2020-10-12] MEDS: Ketorolac Tromethamine 15 MG/ML VIAL 30 MG IV (08:32)
--- NOTE | 2020-10-12 08:57 | HO.POSTANES ---
Post Anesthesia Evaluation Post Anesthesia Evaluation Vital Signs: Vital Signs Temp Pulse Resp BP Pulse Ox 10/12/20 07:41 98.1 F 95 18 135/82 97 10/12/20 03:20 98.2 F 77 20 158/97 H 99 10/12/20 02:50 77 24 H 119/79 100 10/12/20 02:40 82 24 H 141/96 H 100 10/12/20 02:31 87 20 106/84 99 10/12/20 00:00 98.6 F 61 18 149/87 H 98 10/11/20 21:35 98.1 F 72 18 151/79 H 95 Anesthesia: General Endotracheal-GETA Mental Status: Awake Pain Control: Satisfactory Nausea/Vomiting: None Hydration: Adequate Anesthesia-Related Issues: No Anes. Related Issues
--- NOTE | 2020-10-12 10:12 | PM.EVENT ---
Event Note Date of Service: 10/12/20 Event Note: Patient reassessed. He reports his pain has significantly improved and is now just mild, incisional. He ambulated the halls. He is tolerating a solid diet. He is requesting to be discharged to home. Will reassess later today for likely d/c to home.
--- NOTE | 2020-10-12 10:14 | P.DS_ITS ---
DS: Providers Provider Date of admission: 10/09/20 04:56 Primary care physician: Ion Alvarado MD Consults: 10/10/20 07:24 Consult to Gastroenterology Routine Consulting Provider: Cherry Jacobsen Reason for consultation: Elevated LFTs, ? CBD stones. DS: Diagnosis Discharge Diagnosis (1) S/P laparoscopic cholecystectomy: Status: Acute Problem details: POD #1 (2) Choledocholithiasis with acute cholecystitis: Status: Acute DS: Medications Discharge Medications Home Medications: Home Medications Medication Instructions Recorded Confirmed aspirin 81 mg tablet,delayed 81 mg PO DAILY 08/11/20 10/09/20 release atorvastatin 80 mg tablet 80 mg PO DAILY 08/11/20 10/09/20 cholestyramine (with sugar) 4 gram 1 g PO BID 08/11/20 10/09/20 oral powder lisinopril 10 mg tablet 10 mg PO DAILY 08/11/20 10/09/20 metoprolol succinate 50 mg 50 mg PO DAILY 08/11/20 10/09/20 tablet,extended release 24 hr sildenafil 1 tab PO DAILY PRN 10/09/20 10/09/20 DS: Summary Hospital Course Hospital Course: BRIEF HPI: 44-year-old male patient with complaints of abdominal pain in the upper abdomen found to have elevated liver function tests. CT of the abdomen and pelvis revealed a thickened gallbladder wall with evidence of pancreatitis. Subsequent MRCP was negative for choledocholithiasis. The patient was presumed to have passed a gallstone and LFTs have subsequently trended downward. It was recommended to proceed with a laparoscopic cholecystectomy. He agreed and was added onto the OR schedule. HOSPITAL COURSE: On 10/11/20, a laparoscopic cholecystectomy was performed by Dr. Wray without complication. The patient tolerated the procedure well and was admitted back to med/surgical floor for observation. Post operatively, overnight the patient began to experience severe RUQ pain radiating to his right shoulder and chest. A rapid response was called and work up showed no significant abnormalities, likely secondary to referred pain. He was seen the following morning and had persistent pain. His abd was benign with appropriate post op tenderness and dressings intact. He was encouraged to ambulate and given ketorolac and ofirmev. He was reassessed and was significantly more comfortable. He was tolerating a solid diet. He was reassessed later that day and continued to feel well with good pain control. He felt ready for discharge. He was discharged to home on 10/12/2020 in stable condition. Status at Discharge Functional status at discharge: independent ambulation Overall status at discharge: patient is progressing back to baseline Time Spent with Patient Time attestation: Total time spent providing and/or coordinating discharge services: Physical Exam Vital Signs: Vital Signs: Last Vital Signs Temp 98.1 F 10/12/20 07:41 Pulse 95 10/12/20 07:41 Resp 18 10/12/20 07:41 BP 135/82 10/12/20 07:41 Pulse Ox 97 10/12/20 07:41 Body Mass Index 26.9 Const: General: comfortable, no acute distress and alert Orientation/consciousness: patient oriented x3 Eyes: Sclerae: sclerae normal Resp: Effort & Inspection: normal respiratory effort Cardio: Rate: regular rate GI: Inspection: Yes incision (dressings intact) Palpation (GI): Soft to palpation, Tenderness to palpation present (GI) in the RUQ (mild) and not rigid Skin: General skin exam: no rashes or lesions noted Neuro: General: patient oriented x3 Extrem: General: Yes no clubbing, cyanosis or edema DS: Data Data Completed and Pending Pending studies at discharge: Pending at discharge 10/11/20 12:00 Surgical [PTH] Routine Labs on day of discharge: 10/09/20 02:12 ECG 12 lead EKG Stat EKG Documentation DIRECTED US abdomen limited Stat 10/09/20 02:22 Comprehensive Met. Panel Stat Lipase Stat 10/09/20 02:23 Complete Blood Count Auto Diff Stat 10/09/20 03:14 HYDROmorphone HCl [Dilaudid] 0.25 mg IVPUSH ONCE ONE 10/09/20 03:38 CT abdomen pelvis w con Stat 0.9 % Sodium Chloride [Ns] 1,000 ml IV 999 mls/hr 10/09/20 04:01 iohexoL 350 MG/ML [Omnipaque 350 MG/ML] 85 ml IV ONCE ONE 10/09/20 04:14 COVID-19 ID NOW (Perez) Stat 10/09/20 04:42 HYDROmorphone HCl [Dilaudid] 0.5 mg IVPUSH ONCE ONE 10/09/20 04:45 Transfer Order Routine 10/09/20 04:56 HYDROmorphone HCl [Dilaudid] 0.5 mg IVPUSH Q4H PRN Piperacillin Sodium/Tazobactam [Zosyn] 3.375 gm 0.9 % Sodium Chloride [Ns] 50 ml IV ONCE 10/09/20 05:30 Piperacillin Sodium/Tazobactam [Zosyn] 3.375 gm IV .STK-MED ONE 10/09/20 07:01 Acetaminophen Supp [Tylenol Supp] 650 mg LA Q6H PRN Dextrose 5 % and Lactated Ring [D5lr] 1,000 ml IVCONT 125 mls/hr 10/09/20 Breakfast NPO Diet 10/09/20 13:27 Liver Panel Routine 10/10/20 MR MRCP Stat 10/10/20 08:00 Amylase Routine Lipase Routine Liver Panel Routine 10/10/20 16:53 Acetaminophen [Tylenol] 650 mg PO Q6H PRN 10/11/20 08:00 cefoTEtan disod/Dextrose,Iso [Cefotan] 2 gm in 50 ml IV PREOP 10/11/20 10:08 Bupivacaine MPF 0.75 % w/EPI [Sensorcaine MPF 0.75%/EPI 1:200,000] 30 ml .ROUTE .STK-MED ONE 10/11/20 10:30 Transfer Order Routine 10/11/20 10:34 cefoTEtan disodium [Cefotan] 2 gm .ROUTE .STK-MED ONE 10/11/20 10:49 Midazolam HCl/PF [Versed] 2 mg .ROUTE .STK-MED ONE fentaNYL citrate/PF [Sublimaze] 2,500 mcg .ROUTE .STK-MED ONE 10/11/20 10:51 Lidocaine HCl 2 % MPF [Xylocaine 2 % MPF] 5 ml .ROUTE .STK-MED ONE Rocuronium [place] [Zemuron] 100 mg IV .STK-MED ONE dexAMETHasone sod phosphate [Decadron] 4 mg .ROUTE .STK-MED ONE ondansetron HCL [Zofran] 4 mg .ROUTE .STK-MED ONE propofoL [Diprivan] 200 mg IVPUSH .STK-MED ONE 10/11/20 11:08 HYDROmorphone HCl [Dilaudid] 0.25 mg IVPUSH Q5M PRN Ketorolac Tromethamine [Toradol] 15 mg IVPUSH ONCE PRN Promethazine HCL [Phenergan] 12.5 mg 0.9 % Sodium Chloride [Ns] 50 ml IV ONCE oxyCODONE HCl Immed Release [Roxicodone] 5 mg PO ONCE PRN 10/11/20 11:15 Lactated Ringers [Lr] 1,000 ml IVCONT 50 mls/hr 10/11/20 11:31 ePHEDrine sulfate 50 mg .ROUTE .STK-MED ONE 10/11/20 11:41 Sugammadex Sodium [Bridion] 200 mg IVPUSH .STK-MED ONE 10/11/20 11:58 Esmolol HCl [Brevibloc] 100,000 mcg .ROUTE .STK-MED ONE 10/11/20 12:14 Transfer Order Routine 10/11/20 12:45 oxyCODONE HCl Immed Release [Roxicodone] 5 mg .ROUTE .STK-MED ONE 10/11/20 13:11 HYDROmorphone HCl [Dilaudid] 0.5 mg .ROUTE .STK-MED ONE Ketorolac Tromethamine [Toradol] 15 mg .ROUTE .STK-MED ONE 10/12/20 CT abdomen pelvis w con Stat 10/12/20 02:34 Morphine Sulfate 4 mg .ROUTE .STK-MED ONE 10/12/20 02:35 HYDROmorphone HCl [Dilaudid] 1 mg .ROUTE .STK-MED ONE 10/12/20 02:38 ECG 12 lead EKG Stat CXR [XR chest 1V] Stat 10/12/20 02:39 HYDROmorphone HCl [Dilaudid] 1 mg IVPUSH ONCE ONE 10/12/20 02:48 Morphine Sulfate 4 mg IM ONCE STA 10/12/20 02:49 LORazepam [Ativan] 0.5 mg IVPUSH STAT STA 10/12/20 02:50 CBC W/AUTO DIFF [Complete Blood Count Auto Diff] Stat 10/12/20 02:55 Basic Metabolic Panel Stat Lipase Stat Troponin-I High Sensitivity Stat 10/12/20 03:16 iohexoL 350 MG/ML [Omnipaque 350 MG/ML] 85 ml IV ONCE ONE 10/12/20 05:58 Basic Metabolic Panel DAILY@0600 Complete Blood Count Auto Diff DAILY@0600 Liver Panel DAILY@0600 10/12/20 06:03 diphenhydrAMINE HCL [Benadryl] 25 mg IVPUSH ONCE ONE Laboratory Last Values WBC 11.8 X10*3/uL (4.8-10.8) H 10/12/20 05:58 RBC 4.62 X10*6/uL (4.60-5.80) 10/12/20 05:58 Hgb 13.6 g/dl (14.0-18.0) L 10/12/20 05:58 Hct 39.4 % (42-52) L 10/12/20 05:58 MCV 85.3 fL (80-98) 10/12/20 05:58 MCH 29.4 pg (27.0-33.0) 10/12/20 05:58 MCHC 34.5 g/dl (31.0-36.0) 10/12/20 05:58 RDW 11.5 % (11.0-16.0) 10/12/20 05:58 Plt Count 172 X10*3/uL (160-400) 10/12/20 05:58 MPV 10.5 fL (9.4-12.4) 10/12/20 05:58 Immature Gran % (Auto) 0.4 % (0.0-0.4) 10/12/20 05:58 Neut % (Auto) 80.2 % (45-73) H 10/12/20 05:58 Lymph % (Auto) 8.7 % (20-40) L 10/12/20 05:58 [facility] % (Auto) 10.4 % (2-11) 10/12/20 05:58 Eos % (Auto) 0.0 % (0-4) 10/12/20 05:58 Baso % (Auto) 0.3 % (0-2) 10/12/20 05:58 Lymph # (Auto) 1.0 X10*3/uL (1.2-4.9) L 10/12/20 05:58 [facility] # (Auto) 1.2 X10*3/uL (0.1-1.2) 10/12/20 05:58 Eos # (Auto) 0.0 X10*3/uL (0.0-0.4) 10/12/20 05:58 Baso # (Auto) 0.0 X10*3/uL (0.0-0.2) 10/12/20 05:58 Abs Immat Gran (auto) 0.05 X10*3/uL (0.00-0.03) H 10/12/20 05:58 Absolute Neuts (auto) 9.4 X10*3/uL (2.0-8.3) H 10/12/20 05:58 Absolute Nucleated RBC 0.000 X10*3/uL (0.0-0.012) 10/12/20 05:58 Nucleated RBC % (auto) 0.0 /100WBC (0.0-0.2) 10/12/20 05:58 Sodium 136 mmol/L (135-145) 10/12/20 05:58 Potassium 3.1 mmol/l (3.3-5.1) L 10/12/20 05:58 Chloride 103 mmol/L (96-108) 10/12/20 05:58 Carbon Dioxide 23 mmol/L (22-29) 10/12/20 05:58 Anion Gap 13 (-) 10/12/20 05:58 BUN 8 mg/dL (9-16) L 10/12/20 05:58 Creatinine 1.00 mg/dL (0.5-1.4) 10/12/20 05:58 Estim Creat Clear Calc 103.4 10/12/20 05:58 Estimated GFR > 60 10/12/20 05:58 Random Glucose 132 mg/dL (60-115) H 10/12/20 05:58 Calcium 8.3 mg/dL (8.4-10.2) L D 10/12/20 05:58 Total Bilirubin 1.7 mg/dL (0.0-1.0) H 10/12/20 05:58 Direct Bilirubin 0.7 mg/dL (0.0-0.5) H 10/12/20 05:58 AST 55 U/L (5-37) H 10/12/20 05:58 ALT 260 U/L (0-40) H 10/12/20 05:58 Alkaline Phosphatase 116 U/L (39-117) D 10/12/20 05:58 Troponin I High Sens < 3.5 ng/L (<3.5-35.0) 10/12/20 02:55 Total Protein 5.8 g/dL (6.5-8.0) L 10/12/20 05:58 Albumin 3.6 g/dL (3.5-5.0) 10/12/20 05:58 Amylase 60 U/L (28-100) 10/10/20 08:00 Lipase 46 U/L (8-78) 10/12/20 02:55 COVID-19 (CIELO) Negative (Negative) 10/09/20 04:14 COVID-19 Clin Com See Note 10/09/20 04:14 Preliminary micro results at discharge 10/09/20 05:55 Blood Culture - Preliminary Blood - Venous No growth after 48 hours. 10/09/20 05:55 Blood Culture - Preliminary Blood - Venous No growth after 48 hours. Discharge Plan Discharge Patient Disposition: Home, Self-Care Referrals: Ion Alvarado MD [Primary Care Provider] - Eliot Wray MD [Physician] - 1 Week Discharge Medications: New oxycodone 5 mg tablet 5 mg PO Q4H PRN (Reason: pain (scale score 7-10)) Qty: 20 RF: 0 Continued sildenafil 100 mg tablet 1 tab PO DAILY PRN (Reason: Erectile Dysfunction) RF: 0 atorvastatin 80 mg tablet 80 mg PO DAILY RF: 0 lisinopril 10 mg tablet 10 mg PO DAILY RF: 0 metoprolol succinate 50 mg tablet extended release 24 hr 50 mg PO DAILY RF: 0 cholestyramine (with sugar) 4 gram powder 1 g PO BID RF: 0 aspirin [Adult Low Dose Aspirin] 81 mg tablet,delayed release (DR/EC) 81 mg PO DAILY RF: 0 Discharge Orders: Discharge Order (Routine); Ordered 10/12/20 Ordered By: Stephanie Solano Diet: low fat, low cholesterol Activity on Discharge: No heavy lifting Stand Alone Forms: Work/School Release Activity Restrictions/Additional Instructions: If the incision area is tender, you may apply an ice pack for short intervals (No more than 20 minutes on, followed by at least 20 minutes off). Do not apply heat. Do not use creams, lotions, or topical antibiotics unless instructed to do so by your surgeon. These can cause infection or allergic reaction. Ok to shower. Remove clear dressings 3 days following your procedure. You have steri strips (small white cloth strips) covering your incision- these will fall off ~1 week. Call Your Doctor If: -Your temperature exceeds 101.5? F -You experience excessive pain or swelling -You have an unexpected reaction to medication -You have excessive bleeding -You experience continued vomiting/nausea -Your incision begins to separate -Your incision shows signs of infection such as increased redness, swelling, excessive pain, drainage (light blood or clear fluid is normal) or heat Visit Report Forms: Patient Portal Discharge page Care Plan Goals: Return to baseline health and activity following recovery period. Health Concerns: Acute cholecystitis, choledocolithiasis s/p lap CCY Plan of Treatment: S/p lap cholecystectomy, discharge to home
== END 2020-10-12 14:12 | disposition home or self-care (01) | DRG 263 ==
LOC: HO.ED 04:37 → HO.IMC 06:52 → HO.S3 10-11 19:28
PROVIDERS: Internal Medicine; Admitting Provider Surgery; Emergency Provider Student in an Organized Health Care Education/Training Program; PCP Internal Medicine; Visit Provider Surgery
PROC: 0FT44ZZ Resection of Gallbladder, Percutaneous Endoscopic Approach (ICD-10-PCS; CPT 47562; principal; 2020-10-11 10:30)
DX: K80.42 Calculus of bile duct with acute cholecystitis without obstruction (principal); K85.10 Biliary acute pancreatitis without necrosis or infection; I10 Essential (primary) hypertension; K21.9 Gastro-esophageal reflux disease without esophagitis; Z20.828 Contact with and (suspected) exposure to other viral communicable diseases; Z87.891 Personal history of nicotine dependence; Z79.82 Long term (current) use of aspirin; Z79.891 Long term (current) use of opiate analgesic; Z79.899 Other long term (current) drug therapy
CPT/HCPCS: 36415; 71045; 74177; 74181; 76705; 80048; 80053; 80076; 82150; 83690; 84484; 85025; 87040; 87635; 88304; 93005; 96361; 96374; 96376; 99285; J0131; J1100; J1170; J1885; J2060; J2250; J2270; J2405; J2543; J3010; Q9967

== ENCOUNTER → 2020-10-20 11:29 | Outpatient (BNVA) | payer BC, SELFPAY | PROVIDERS: PCP Internal Medicine; Visit Provider Surgery | DX: Z76.89 Persons encountering health services in other specified circumstances (principal) ==

== ENCOUNTER 2022-01-07 08:23 | Outpatient (REF) | payer BC, SELFPAY ==
[2022-01-07 08:51] LABS: MANUAL DIFF FLAG NO
[2022-01-07 09:26] LABS: Basophils Absolute Auto 0.1 X10*3/uL (0.0-0.2); Basophils Percent Auto 1.2 % (0-2); Eosinophils Absolute Auto 0.2 X10*3/uL (0.0-0.4); Eosinophils Percent Auto 2.7 % (0-4); Hematocrit 48.7 % (42.0-52.0); Hemoglobin 16.2 g/dl (14.0-18.0); Imm Gran Abs Auto 0.02 X10*3/uL (0.00-0.03); Imm Gran Pct Auto 0.3 % (0.0-0.4); Lymphocytes Percent Auto 33.1 % (20-40); Mean Corpuscular HGB Conc 33.3 g/dl (31.0-36.0); Mean Corpuscular Hemoglobin 29.2 pg (27.0-33.0); Mean Corpuscular Volume 87.7 fL (80.0-98.0); Mean Platelet Volume 9.6 fL (9.4-12.4); Monocytes Absolute Auto 0.6 X10*3/uL (0.1-1.2); Monocytes Percent Auto 9.9 % (2-11); Neutrophils Absolute Auto 3.1 x10*3/uL (2.0-8.3); Neutrophils Percent Auto 52.8 % (45-73); Platelet Count 213 X10*3/uL (160-400); Red Blood Count 5.55 X10*6/uL (4.60-5.80); Red Cell Distribution Width 11.8 % (11.0-16.0); White Blood Count 5.9 X10*3/uL (4.8-10.8)
[2022-01-07 10:02] LABS: Alanine Aminotransferase 48 U/L (0-40); Albumin Level 4.1 g/dL (3.5-5.0); Alkaline Phosphatase 58 U/L (39-117); Anion Gap 12 (12-20); Aspartate Amino Transferase 33 U/L (5-37); Blood Urea Nitrogen 20 mg/dL (9-16); Calcium 9.5 mg/dL (8.4-10.2); Carbon Dioxide 27 mmol/L (22-29); Chloride 106 mmol/L (96-108); Cholesterol 122 mg/dL; Estimated Glomerular Filt Rate 60; Glucose Fasting 102 mg/dL (60-99); HDL Cholesterol 45 mg/dL; LDL Cholesterol Calculated 59 mg/dl; Sodium 140 mmol/L (135-145); Total Protein 6.7 g/dL (6.5-8.0); Triglycerides 90 mg/dL
== END 2022-01-07 08:24 | disposition home or self-care (01) ==
LOC: HO.LAB 08:23
PROVIDERS: PCP Internal Medicine; Visit Provider Internal Medicine
DX: Z20.822 Contact with and (suspected) exposure to COVID-19 (principal); I25.10 Atherosclerotic heart disease of native coronary artery without angina pectoris; I10 Essential (primary) hypertension; E78.00 Pure hypercholesterolemia, unspecified; K21.9 Gastro-esophageal reflux disease without esophagitis
CPT/HCPCS: 36415; 80053; 80061; 85025

== ENCOUNTER 2022-05-10 17:09 | Outpatient (REF) | payer BC, SELFPAY ==
[2022-05-10 17:53] LABS: Alanine Aminotransferase 42 U/L (0-40); Albumin Level 4.2 g/dL (3.5-5.0); Alkaline Phosphatase 58 U/L (39-117); Anion Gap 13 (12-20); Aspartate Amino Transferase 31 U/L (5-37); Bilirubin Total 2.2 mg/dL (0.0-1.0); Blood Urea Nitrogen 23 mg/dL (9-16); Calcium 9.1 mg/dL (8.4-10.2); Carbon Dioxide 23 mmol/L (22-29); Chloride 105 mmol/L (96-108); Estimated Glomerular Filt Rate > 60; Glucose Random 100 mg/dL (60-115); Potassium 4.4 mmol/L (3.3-5.1); Sodium 137 mmol/L (135-145); Total Protein 6.7 g/dL (6.5-8.0)
== END 2022-05-10 17:10 | disposition home or self-care (01) ==
LOC: HO.LAB 17:09
PROVIDERS: PCP Internal Medicine; Visit Provider Internal Medicine
DX: I10 Essential (primary) hypertension (principal); I25.10 Atherosclerotic heart disease of native coronary artery without angina pectoris
CPT/HCPCS: 36415; 80053

== ENCOUNTER 2022-05-23 11:12 | Day surgery (SDC) | payer BC, SELFPAY ==
--- NOTE | 2022-05-22 11:52 | P.CONAN_ITS ---
Documented by User: Mary Isidro NP 05/22/22 11:58 HPI - Anesthesia Eval Consult details Narrative: 46yo M for Right Excision Lipoma back CAD s/p stent 2015. Follows with Dr Acuña. Last OV note requested 05/22/22. 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 s/p lap zleda 09/2020 without issue PMFSH Active Problems Active Problems: All Active Problems (Updated 05/16/22 @ 16:05 by Martita Padilla, RN) Thrombosed external hemorrhoid (Acute) Lipoma (Acute) Neck fracture (Acute) Myocardial infarction (Acute) HTN (hypertension) (Acute) Past Medical History Medical History (Updated 05/16/22 @ 16:05 by Martita Padilla, RN) Asthma Coronary artery disease GERD (gastroesophageal reflux disease) History of COVID-19 History of ETOH abuse HTN (hypertension) Myocardial infarction Neck fracture On beta lynne at home Surgical History Surgical History (Updated 05/16/22 @ 16:05 by Martita Padilla, RN) H/O left inguinal hernia repair History of appendectomy S/P laparoscopic cholecystectomy Stented coronary artery Social History Social History Household Members: Family Housing: House Are you a primary childcare teacher to a significant other at home: No Do you presently have visiting nurse or other home services: No Alcohol intake: former Substance Use Type: Marijuana Have you been hit, kicked, punched, or otherwise hurt by someone within the past year? If so, by whom?: No Are you DNR?: No Advance Directives: No Advance Directives Information Provided: Yes Advance Directives on File: No Recently lost weight without trying: No Eating poorly because of decreased appetite: No Nutrition Risks: No Nutritional Risk service: No Current occupational status: employed Meds Allergies Allergy/AdvReac Type Severity Reaction Status Date / Time No Known Allergies Allergy Verified 05/16/22 15:31 [No Known Allergies*] Home Medications Medication Instructions Recorded Confirmed Last Taken Type aspirin 81 mg tablet,delayed 81 mg PO DAILY 08/11/20 05/16/22 10/09/20 History release (Adult Low Dose Aspirin) atorvastatin 80 mg tablet 80 mg PO DAILY 08/11/20 05/16/22 10/09/20 History cholestyramine (with sugar) 4 gram 1 g PO BID diarrhea 08/11/20 05/16/22 10/09/20 History oral powder lisinopril 10 mg tablet 10 mg PO DAILY 08/11/20 05/16/22 10/09/20 History metoprolol succinate 50 mg 50 mg PO DAILY 08/11/20 05/16/22 10/09/20 History tablet,extended release 24 hr sildenafil 100 mg tablet 1 tab PO DAILY PRN Erectile 10/09/20 05/16/22 Unknown History Dysfunction Exam Exam Date and Time: May 22, 2022 1152 Height,Weight and Vital Signs: Height 190 ft Pertinent Lab Results Pertinent Lab Results: Laboratory Tests 01/07/22 05/10/22 08:49 17:17 WBC 5.9 Hgb 16.2 Hct 48.7 Plt Count 213 Sodium 137 Potassium 4.4 Chloride 105 Carbon Dioxide 23 BUN 23 H Creatinine 1.19 Documented by User: See Gallardo MD 05/23/22 12:33 [facility] Past Medical History Medical History (Updated 05/16/22 @ 16:05 by Martita Padilla, RN) Asthma Coronary artery disease GERD (gastroesophageal reflux disease) History of COVID-19 History of ETOH abuse HTN (hypertension) Myocardial infarction Neck fracture On beta lynne at home Family History Family history of problems with anesthesia: No Surgical History Surgical History (Updated 05/16/22 @ 16:05 by Martita Padilla, RN) H/O left inguinal hernia repair History of appendectomy S/P laparoscopic cholecystectomy Stented coronary artery History of Problems with Anesthesia: No Social History Social History Household Members: Family Housing: House Are you a primary childcare teacher to a significant other at home: No Do you presently have visiting nurse or other home services: No Alcohol intake: former Substance Use Type: Marijuana Have you been hit, kicked, punched, or otherwise hurt by someone within the past year? If so, by whom?: No Are you DNR?: No Advance Directives: No Advance Directives Information Provided: Yes Advance Directives on File: No Recently lost weight without trying: No Eating poorly because of decreased appetite: No Nutrition Risks: No Nutritional Risk service: No Current occupational status: employed Meds Allergies Allergy/AdvReac Type Severity Reaction Status Date / Time No Known Allergies Allergy Verified 05/16/22 15:31 [No Known Allergies*] Home Medications Medication Instructions Recorded Confirmed Last Taken Type aspirin 81 mg tablet,delayed 81 mg PO DAILY 08/11/20 05/16/22 10/09/20 History release (Adult Low Dose Aspirin) atorvastatin 80 mg tablet 80 mg PO DAILY 08/11/20 05/16/22 10/09/20 History cholestyramine (with sugar) 4 gram 1 g PO BID diarrhea 08/11/20 05/16/22 10/09/20 History oral powder lisinopril 10 mg tablet 10 mg PO DAILY 08/11/20 05/16/22 10/09/20 History metoprolol succinate 50 mg 50 mg PO DAILY 08/11/20 05/16/22 10/09/20 History tablet,extended release 24 hr sildenafil 100 mg tablet 1 tab PO DAILY PRN Erectile 10/09/20 05/16/22 Unknown History Dysfunction Exam Airway Mallampati Class: II TM Dist: >3cm Neck ROM: Full Assessment and Plan Assessment Anesthesia Assessment: Anesthesia Plan Discussed and Chart Reviewed Final Anesthetic Review Family History of Problems with Anesthesia: No History of Problems with Anesthesia: No NPO: Yes ASA Class: II Final Preanesthetic Review: No Changes in Pt Med Stat, Meds/Allgs Chart Reviewed, Consent Obtained/Reviewed and Anes Risks/Benef Reviewed Patient Risk: Low Procedure Risk: Low Anesthetic Plan Anesthetic Plan: MAC: Disposition: Standard PACU
--- NOTE | 2022-05-23 | ECG_ITS ---
Test Reason : CAD S/P STENT Blood Pressure : / mmHG Vent. Rate : 062 BPM Atrial Rate : 062 BPM P-R Int : 138 ms QRS Dur : 104 ms QT Int : 418 ms P-R-T Axes : 080 054 023 degrees QTc Int : 424 ms Normal sinus rhythm Normal ECG When compared with ECG of 12-OCT-2020 09:49, No significant change was found Referred By: Mary Isidro Electronically Signed By:ADIS CAMACHO
[2022-05-23 11:31] VITALS: BP 129/87; PULSE 60; RESP 17; TEMP 36.7; O2SAT 98
[2022-05-23 11:37] VITALS: BMI 25.7
[2022-05-23] MEDS: Lactated Ringers 1,000 ML 100 ML IVCONT (11:44)
--- NOTE | 2022-05-23 13:29 | P.OP_ITS ---
Operative Note Operative Note Date of Service: 05/23/22 Narrative: Preop diagnosis: [Lipoma 7.1x8.3cm, right scapula] Postop diagnosis: [Same] Procedure: [Excision of lipoma, right back/scapular area with intermediate repair 8cm incision] Surgeon: Jayy Jo MD Assist: [None] Anesthesia: [Mac; local: Lidocaine, 2% with epi & ropivacaine, 0.5% in 50/50 mix] Estimated blood loss: [3cc] Specimen: [Lipomatous tissue right back] Intraoperative findings: [Lipomatous tissue] Indications: The patient is a 46-year-old gentleman with a lipoma that has become more symptomatic since he works in [employer] and has to lay on the rather large lipoma on his right scapula while working. Given this, he wanted to have a removed. The inherent risks of scar, bleeding, infection, recurrence, seroma or other wound complications that could require another procedure were discussed. He seemed understand his options and wanted to proceed. Activity restrictions and work restrictions were also discussed and apparently understood. Procedure: The patient was identified by myself in the preoperative holding area and marked. 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 MAC was administered with excellent effect and his right back cleansed with chlorhexidine that was allowed to dry. After an appropriate time-out was performed, additional MAC was administered and local infiltrated into the operative site. A transverse incision was made in the skin and carried to the subcutaneous tissues. Hemostasis was obtained with electrocautery. The lipoma was circumferentially excised and an intermediate closure performed using 3-0 Polysorb on the subcutaneous tissues and lipoma pocket and 4-0 Monocryl on the skin in subcuticular manner. The area was then washed and dried, Mastisol and Steri- Strips applied followed by dressings. Patient tolerated the procedure well and was sent to the recovery in stable condition. All sponge instrument counts were correct At the patient's request, I contacted his mom at [phone] and apprised her of the operation and activity restrictions. The her questions seemed to be satisfactorily answered.]
--- NOTE | 2022-05-23 13:29 | MHC.SHP ---
Pre-Procedural Eval Section A Date of Service: 05/23/22 The patient is an INPATIENT: No The History & Physical has been completed within 30 days and I have reviewed it.: Yes Section B Chief Complaint: lipoma Allergies: Allergies Allergy/AdvReac Type Severity Reaction Status Date / Time No Known Allergies Allergy Verified 05/16/22 15:31 [No Known Allergies*] Plan I have reviewed the history and physical and performed a pertinent physical examination on my patient. No changes have occurred unless specified.
--- NOTE | 2022-05-23 13:56 | PC.NURSE ---
Dr. sher aware of inappropriate surgical consent for excision lipoma of back on right. Yessenia Jessica sale professional digital marketing aware.
--- NOTE | 2022-05-23 14:00 | PC.NURSE ---
addendum: i.e, signed & predated consent with no time for both MD and pt.
[2022-05-23 14:52] VITALS: BP 116/68; PULSE 64; RESP 14; TEMP 36.6; O2SAT 97
[2022-05-23 15:07] VITALS: BP 127/82; PULSE 72; RESP 16; O2SAT 96
[2022-05-23 15:22] VITALS: BP 128/82; PULSE 66; RESP 16; O2SAT 96
[2022-05-23] MEDS: oxyCODONE HCl Immed Release 5 MG TABLET PO (15:36)
[2022-05-23 15:38] VITALS: BP 122/84; PULSE 62; RESP 16; TEMP 36.6; O2SAT 96
[2022-05-23 15:53] VITALS: BP 126/82; PULSE 68; RESP 16; TEMP 36.6; O2SAT 97
== END 2022-05-23 16:06 | disposition home or self-care (01) ==
LOC: HO.SSS 11:13
PROVIDERS: PCP Internal Medicine; Visit Provider Surgery
PROC: (CPT 21931; principal; 2022-05-23 12:50)
DX: D17.39 Benign lipomatous neoplasm of skin and subcutaneous tissue of other sites (principal); I25.10 Atherosclerotic heart disease of native coronary artery without angina pectoris; I10 Essential (primary) hypertension; I25.2 Old myocardial infarction; Z95.5 Presence of coronary angioplasty implant and graft; F10.11 Alcohol abuse, in remission; J45.909 Unspecified asthma, uncomplicated; K21.9 Gastro-esophageal reflux disease without esophagitis; Z79.82 Long term (current) use of aspirin; Z79.899 Other long term (current) drug therapy; Z90.49 Acquired absence of other specified parts of digestive tract; Z86.16 Personal history of COVID-19; F12.90 Cannabis use, unspecified, uncomplicated
CPT/HCPCS: 21931; 88304; 93005; J0690; J2250; J2795; J3010

== ENCOUNTER 2022-08-14 16:53 | Outpatient (REF) | payer BC, SELFPAY ==
[2022-08-14 17:05] LABS: MANUAL DIFF FLAG NO
[2022-08-14 17:21] LABS: Basophils Absolute Auto 0.1 X10*3/uL (0.0-0.2); Basophils Percent Auto 1.4 % (0-2); Eosinophils Absolute Auto 0.2 X10*3/uL (0.0-0.4); Eosinophils Percent Auto 3.8 % (0-4); Hematocrit 41.6 % (42.0-52.0); Hemoglobin 14.2 g/dl (14.0-18.0); Imm Gran Abs Auto 0.03 X10*3/uL (0.00-0.03); Imm Gran Pct Auto 0.5 % (0.0-0.4); Lymphocytes Absolute Auto 2.2 X10*3/uL (1.2-4.9); Lymphocytes Percent Auto 34.4 % (20-40); Mean Corpuscular HGB Conc 34.1 g/dl (31.0-36.0); Mean Corpuscular Hemoglobin 29.9 pg (27.0-33.0); Mean Corpuscular Volume 87.6 fL (80.0-98.0); Mean Platelet Volume 9.5 fL (9.4-12.4); Monocytes Absolute Auto 0.7 X10*3/uL (0.1-1.2); Monocytes Percent Auto 11.3 % (2-11); Neutrophils Absolute Auto 3.1 x10*3/uL (2.0-8.3); Neutrophils Percent Auto 48.6 % (45-73); Platelet Count 208 X10*3/uL (160-400); Red Blood Count 4.75 X10*6/uL (4.60-5.80); Red Cell Distribution Width 11.7 % (11.0-16.0); White Blood Count 6.4 X10*3/uL (4.8-10.8)
[2022-08-14 17:49] LABS: Alanine Aminotransferase 38 U/L (0-40); Alkaline Phosphatase 55 U/L (39-117); Anion Gap 16 (12-20); Aspartate Amino Transferase 32 U/L (5-37); Bilirubin Total 1.4 mg/dL (0.0-1.0); Blood Urea Nitrogen 18 mg/dL (9-16); Calcium 9.1 mg/dL (8.4-10.2); Carbon Dioxide 25 mmol/L (22-29); Chloride 102 mmol/L (96-108); Estimated Glomerular Filt Rate > 60; Glucose Random 96 mg/dL (60-115); Potassium 4.1 mmol/L (3.3-5.1); Sodium 139 mmol/L (135-145); Total Protein 6.4 g/dL (6.5-8.0)
== END 2022-08-14 16:54 | disposition home or self-care (01) ==
LOC: HO.LAB 16:53
PROVIDERS: PCP Internal Medicine; Visit Provider Internal Medicine
DX: Z01.818 Encounter for other preprocedural examination (principal); I10 Essential (primary) hypertension; I25.10 Atherosclerotic heart disease of native coronary artery without angina pectoris
CPT/HCPCS: 36415; 80053; 85025

== ENCOUNTER 2022-11-01 10:02 | Outpatient (REF) | payer BC, SELFPAY ==
[2022-11-02 09:38] LABS: HIV AB/AG Nonreactive (Nonreactive); HIV Num 1 0.07 S/CO (0.00-0.99)
== END 2022-11-01 10:03 | disposition home or self-care (01) ==
LOC: HO.LAB 10:02
PROVIDERS: PCP Internal Medicine; Visit Provider Internal Medicine
DX: L98.9 Disorder of the skin and subcutaneous tissue, unspecified (principal)
CPT/HCPCS: 36415; 87389

== ENCOUNTER 2022-11-06 14:06 | Outpatient (REF) | payer BC, SELFPAY ==
[2022-11-08 06:39] LABS: HIV AB/AG Nonreactive (Nonreactive); HIV Num 1 0.06 S/CO (0.00-0.99)
== END 2022-11-06 14:07 | disposition home or self-care (01) ==
LOC: HO.LAB 14:06
PROVIDERS: PCP Internal Medicine; Visit Provider Internal Medicine
DX: Z11.4 Encounter for screening for human immunodeficiency virus [HIV] (principal)
CPT/HCPCS: 36415; 87389

== ENCOUNTER 2023-01-13 15:09 | Outpatient (REF) | payer BC, SELFPAY ==
[2023-01-13 15:53] LABS: Influenza A PCR NEGATIVE (Negative); Influenza B PCR NEGATIVE (Negative); Resp Syncy Virus RNA Qual PCR NEGATIVE (Negative); SARS COV2 PCR INHOUSE NEGATIVE (Negative)
== END 2023-01-13 15:10 | disposition home or self-care (01) ==
LOC: HO.LNP 15:09
PROVIDERS: Visit Provider Internal Medicine
DX: Z20.822 Contact with and (suspected) exposure to COVID-19 (principal); R11.2 Nausea with vomiting, unspecified; R05.9 Cough, unspecified
CPT/HCPCS: 0241U

== ENCOUNTER 2023-04-21 10:46 | Emergency (ER) | payer OTHER, SELFPAY ==
[2023-04-21 11:24] VITALS: BP 140/79; PULSE 67; RESP 12; TEMP 36.4; O2SAT 96; BMI 27.1
--- NOTE | 2023-04-21 11:38 | ED.GENADULT ---
HPI - General Adult General Chief complaint: Wound/Laceration Stated complaint: Finger lac/work inj Time Seen by Provider: 04/21/23 11:37 Source: patient Mode of arrival: ambulatory Limitations: no limitations History of Present Illness HPI narrative: Patient is a 47 year old assigned male at with a history of HTN presenting to the emergency department today with a laceration to his right 5th finger. Patient states that he was trying to catch an HVAC system that was falling when it cut his right pinky. Patient states that he does not know his last tetanus shot. Patient denies any dizziness, lightheadedness, abdominal pain, nausea, vomiting, fever, chills, blurry vision, double vision, loss of vision, chest pain, difficulty breathing, shortness of breath, back pain, night sweats, pain with urination, increased urinary frequency, increased urinary urgency, blood in his urine or stool, syncope or a near syncopal episode, bowel incontinence, bladder incontinence, bowel retention, bladder retention, or any other complaints at this time. Onset (ago): minute(s) Location: right and upper extremity Radiation: non-radiation Severity: mild Severity scale (1-10): 3 Pain Consistency: constant Relieving factors: none Exacerbating factors: none Associated symptoms: denies other symptoms Treatments prior to arrival: none Related Data Home Medications Medication Instructions Recorded Confirmed aspirin 81 mg tablet,delayed 81 mg PO DAILY 08/11/20 06/07/22 release (Adult Low Dose Aspirin) atorvastatin 80 mg tablet 80 mg PO DAILY 08/11/20 06/07/22 cholestyramine (with sugar) 4 gram 1 g PO BID diarrhea 08/11/20 06/07/22 oral powder lisinopril 10 mg tablet 10 mg PO DAILY 08/11/20 06/07/22 metoprolol succinate 50 mg 50 mg PO DAILY 08/11/20 06/07/22 tablet,extended release 24 hr sildenafil 100 mg tablet 1 tab PO DAILY PRN Erectile 10/09/20 06/07/22 Dysfunction Previous Rx's Medication Instructions Recorded cephalexin 500 mg capsule 500 mg PO Q6H 7 days #28 caps 04/21/23 Allergies Allergy/AdvReac Type Severity Reaction Status Date / Time No Known Allergies Allergy Verified 06/07/22 09:16 [No Known Allergies*] Review of Systems Constitutional: Constitutional: Reports no additional constitutional complaints, Denies chills, Denies fever(s) and Denies night sweats Eyes: Eyes: Reports no additional eye complaints, Denies blurry vision, Denies change in vision, Denies diplopia, Denies eye discharge, Denies loss of vision and Denies eye pain ENT: Denies dizziness Cardiovascular: Cardiovascular: Reports no additional cardiovascular complaints, Denies chest pain, Denies lightheadedness, Denies Loss of Consciousness and Denies dyspnea Respiratory: Respiratory: Reports no additional respiratory complaints and Denies dyspnea Gastrointestinal: Gastrointestinal: Reports no additional gastrointestinal complaints, Denies abdominal pain, Denies melena, Denies hematochezia, Denies change in bowel habits and Denies change in stool character Genitourinary: Genitourinary: Reports no additional male genitourinary complaints, Denies hematuria, Denies oliguria, Denies difficulty urinating, Denies dysuria, Denies urinary frequency, Denies urinary hesitancy, Denies urinary incontinence and Denies urinary urgency Musculoskeletal: Musculoskeletal: Reports no additional musculoskeletal complaints, Denies numbness and Denies tingling Comments: right 5th finger laceration Neurologic: Denies dizziness, Denies loss of vision, Denies numbness and Denies tingling Psychiatric: Psychiatric: Reports no additional psychiatric complaints Endocrine: Endocrine: Reports no additional endocrine complaints Hematologic/Lymphatic: Hematologic/Lymphatic: Reports no additional hematologic/lymphatic complaints Allergic/Immunologic: Allergic/Immunologic: Reports no additional allergic/immunologic complaints [facility] Past Medical History Attestation statement: The following information was validated with the patient. Source: old records reviewed and nursing notes reviewed Medical History Asthma Coronary artery disease GERD (gastroesophageal reflux disease) History of COVID-19 History of ETOH abuse HTN (hypertension) Myocardial infarction Neck fracture On beta lynne at home Surgical History H/O left inguinal hernia repair History of appendectomy S/P laparoscopic cholecystectomy Status post excision of lipoma Stented coronary artery Social History Social History Household Members: Family Housing: House Are you a primary customer care representative to a significant other at home: No Do you presently have visiting nurse or other home services: No Alcohol intake: former Substance Use Type: Marijuana Advance Directives: No Advance Directives Information Provided: Yes service: No Current occupational status: employed Physical Exam ED Vital Signs: Vital Signs - 24 hr 04/21/23 11:24 Temperature 97.6 F Pulse Rate 67 Respiratory Rate 12 Blood Pressure 140/79 H Pulse Oximetry 96 Oxygen Delivery Method Room Air BMI result Body Mass Index 27.1 Const General: cooperative, no acute distress, alert and awake Nutritional Appearance: well nourished Orientation/consciousness: patient oriented x3 Limitations: no limitations HENMT Head: Yes normal to inspection and Yes atraumatic Ears: hearing grossly normal bilaterally and external ears normal General nose exam: Normal external nose present, no nasal discharge noted and no epistaxis Face and sinus: Yes normal facial exam, No abrasion and No laceration Mouth: Normal oral and palatal mucosa present, no drooling and no muffled voice Eyes General: appearance normal, both eyes and all related structures Periorbital: periorbital findings normal Eyelids: Yes eyelids normal Conjunctivae: conjunctivae normal Pupils: Equal, round and reactive pupils present EOM: EOMs intact bilaterally Neck Neck: Yes normal visual inspection, Yes full ROM and Yes no lymphadenopathy Chest Chest palpation & inspection: normal inspection of the chest Resp Effort & Inspection: normal respiratory effort and able to speak in complete sentences GI Inspection: Yes normal to inspection Neuro General: patient oriented x3 and moves all extremities Cranial nerves: Yes Equal, round and reactive pupils present Cognition (Neuro): normal cognition Motor exam (neuro): 5/5 motor strength present throughout Sensory Exam: Normal double simultaneous stimulation for sensation Coordination: [id number] test normal Extrem Other: 3cm laceration to the palmar aspect of the right 5th finger between the DIP and PIP joints - no active bleeding General: Yes full ROM and Yes capillary refill normal Psych Appearance: grossly normal Mental Status: mental status grossly normal Affect: normal affect Attitude: cooperative Thought process: Normal thought process present Thought content: Normal thought content present Insight: Good insight present (Psych) Medications Administered Discontinued Medications Generic Name Dose Route Start Last Admin Trade Name Freq PRN Reason Stop Dose Admin Diphtheria/Tetanus/Acell Pertussis 0.5 ml 04/21/23 11:41 04/21/23 11:48 Diphth,Pertus(Acell),Tet Adult 0.5 Ml Syringe IM 04/21/23 11:42 0.5 ml .ONCE ONE Administration Lidocaine HCl 10 ml 04/21/23 11:41 04/21/23 11:48 Lidocaine Hcl 1 % Mpf 5 Ml Vial SUBCUT 04/21/23 11:42 10 ml ONCE ONE Administration Procedures Laceration Laceration 1: Site: other (5th finger) Side (If applicable): right Size (cm): 3 Description: linear Depth: simple, single layer Local Anesthetic: lidocaine 1% Amount of anesthesia used (mL): 5 Pre-repair: wound explored, irrigated extensively and deep structures intact Skin layer closed with: other (prolene) Size (cm): 5-0 Number of sutures: 4 Technique: simple, interrupted Medical Decision Making Medical Decision Making MDM Narrative: Patient is a 47 year old assigned male at with a history of HTN presenting to the emergency department today with a right 5th finger laceration. Patient's physical exam was as noted in the physical exam portion of this chart. I explained my physical exam findings to the patient. I answered all questions asked by the patient. Patient laceration was repaired, per procedure note, without incident. Patient's PMS was in tact prior to and after repair and dressing. I stressed the importance of the patient taking his medication as prescribed. I stressed the importance of the patient following up with his primary care provider. I stressed the importance of the patient having his sutures removed in 7-10 days. I stressed the importance of the patient not soaking the affected area. I stressed the importance of the patient performing daily wound checks and dressing changes. I stressed the importance of the patient returning to the emergency department immediately if her symptoms were to worsen or if she were to develop any dizziness, shortness of breath, difficulty breathing, chest pain, blurry vision, loss of vision, nausea, vomiting, abdominal pain, fever, chills, back pain, or any other complaints. Patient verbalized agreement and understanding with this treatment plan and discharge. Differential Diagnosis Differential Diagnoses: The differential diagnosis associated with the presentation includes Laceration Abrasion Avulsion Right 5th finger injury Prescription Management I considered prescription management with: Antibiotic (patient prescribed an antibiotic.) Chronic Conditions Patient?s care impacted by: Hypertension Discharge Plan Discharge Clinical Impression: Finger laceration Patient Disposition: Home, Self-Care Instructions: Care For Your Stitches (DC), Finger Laceration (ED) Additional Instructions: Do NOT soak the affected area. Have your sutures removed in 7-10 days. Take your antibiotics as prescribed. Perform daily wound checks and daily dressing changes. Follow up with your primary care provider. Return to the emergency department immediately if your symptoms worsen or if you develop any dizziness, shortness of breath, difficulty breathing, chest pain, blurry vision, loss of vision, nausea, vomiting, abdominal pain, fever, chills, back pain, or any other complaints. Prescriptions: New cephalexin 500 mg capsule 500 mg PO Q6H 7 Days Qty: 28 0RF No Action sildenafil 100 mg tablet 1 tab PO DAILY PRN (Reason: Erectile Dysfunction) atorvastatin 80 mg tablet 80 mg PO DAILY lisinopril 10 mg tablet 10 mg PO DAILY metoprolol succinate 50 mg tablet extended release 24 hr 50 mg PO DAILY cholestyramine (with sugar) 4 gram powder 1 g PO BID aspirin [Adult Low Dose Aspirin] 81 mg tablet,delayed release (DR/EC) 81 mg PO DAILY Referrals: Ion Alvarado MD [Primary Care Provider] - Stand Alone Forms: Work/School Release Interventions: ED Discharge Assessment Last Done: 04/21/23 13:11 Discharge Date/Time: 04/21/23 13:11 Print Language: Slovak
== END 2023-04-21 13:11 | disposition home or self-care (01) ==
PROVIDERS: Emergency Provider Emergency Medicine; PCP Internal Medicine
DX: S61.216A Laceration without foreign body of right little finger without damage to nail, initial encounter (principal); S60.416A Abrasion of right little finger, initial encounter; W45.8XXA Other foreign body or object entering through skin, initial encounter; Y93.9 Activity, unspecified; Y92.9 Unspecified place or not applicable; Y99.0 Civilian activity done for income or pay; Z79.899 Other long term (current) drug therapy; Z23 Encounter for immunization
CPT/HCPCS: 12002; 90471; 90715; 99282; 99284

== ENCOUNTER 2025-03-08 13:01 | Outpatient (AMB) | payer BC, SELFPAY ==
--- NOTE | 2025-03-08 13:04 | MHC.PC.OV ---
Vital Signs 03/08/25 13:10 03/08/25 13:22 Height 6 ft Weight 90.718 kg BMI 27.1 BP 110/80 112/76 Respiration 14 Pulse 72 Pulse Source Pulse Oximeter Temp 98.7 F Temp Source Temporal Artery Scan Pulse Oximetry (%) 97 Oxygen Delivery Method Room Air Intake Visit Reasons: Routine Plastic Surgery Technician Required: No Accompanied by: Self / Same As Patient Allergies No Known Allergies [No Known Allergies*] Allergy (Verified 03/08/25 13:08) HPI HPI Comments History of Present Illness Details 49-year-old male with history of alcohol abuse, erectile dysfunction, coronary artery disease, hypertension, hyperlipidemia presents to the office today for management of chronic conditions and to establish care. He reports a le ion of the R ear that has been present x 1 year. Occassionally pain and flaking. Has been using antibiotic ointment without effect. Hx AUD and gout but no recent flares and no known history of tophi. He does work in the sun all day. sore upper ear. antibiotic ointment. in the sun alot. no longer than a year Coronary artery disease-s/p myocardial infarction s/p PCI with THIAGO left anterior descending coronary artery. Follows with [facility] cardiology. Continue on asa, atorvastatin and metoprolol HTN- bp 112/76. Compliant with lisinopril 10 mg daily, metoprolol 50 mg ER. Not checking blood pressures at home. Hyperlipidemia- continues on atorvastatin 80 mg daily. Erectile dysfunction/peripheral vascular disease-continues on aspirin and sildenafil as needed Alcohol use disorder- no etoh in 7 years. GERD/hiatal hernia- controlled with omeprazole Screening colonoscopy 2018 [facility] Medical History (Updated 03/08/25 @ 13:35 by MAURICIO Carlson) Hiatal hernia Erectile dysfunction Elevated LFTs Gout HLD (hyperlipidemia) Ruptured appendix History of ETOH abuse History of COVID-19 On beta lynne at home Myocardial infarction Coronary artery disease Neck fracture Asthma HTN (hypertension) GERD (gastroesophageal reflux disease) Surgical History (Updated 03/08/25 @ 13:20 by MAURICIO Carlson) S/P colectomy Status post excision of lipoma S/P laparoscopic cholecystectomy Stented coronary artery H/O left inguinal hernia repair History of appendectomy Social History Household Members: Family Housing: House Are you a primary direct care professional to a significant other at home: No Do you presently have visiting nurse or other home services: No Alcohol intake: former Comment: ambulated, gas pain, voided also Substance Use Type: Marijuana service: No Current occupational status: employed Questionnaire PHQ-9 Over the last 2 weeks, how often have you been bothered by any of the following problems? 1. Little interest or pleasure in doing things: not at all 2. Feeling down, depressed, or hopeless: not at all 3. Trouble falling or staying asleep, or sleeping too much: not at all 4. Feeling tired or having little energy: not at all 5. Poor appetite or overeating: not at all 6. Feeling bad about yourself - or that you are a failure or have let yourself or your family down: not at all 7. Trouble concentrating on things, such as reading the newspaper or watching television: not at all 8. Moving or speaking so slowly that other people could have noticed. Or the opposite - being so fidgety or restless that you have been moving around a lot more than usual: not at all 9. Thoughts that you would be better off or of hurting yourself in some way: not at all Total score: 0 Source: Developed by Drs. Yves Burnette, Nadira Worley, Vasyl Sy and colleagues, with an educational freddie from [employer]. Thrive Questionnaire I am a: Patient What is your living situation today?: I have a steady place to live Within the past 12 months, did the food you bought not last and you didn't have the money to get more?: Never true Within the past 12 months, did you worry whether your food would run out before you got money to buy more?: Never true Do you have trouble paying for medicines?: No Do you have trouble getting transportation to medical appointments?: No Do you have trouble paying your heating and electricity bill?: No Do you have trouble taking care of your child, family member or friend?: No Do you have trouble with day-to-day activities such as bathing, preparing meals, shopping, managing finances, etc.?: No Are you currently unemployed and looking for a job?: No Are you interested in more education?: No Please select the resources that you would like help with: None THRIVE Score: 0 SILVERIO-7 AMB Questionnaire SILVERIO-7 Feeling nervous, anxious, or on edge: 0 = Not at all Not being able to stop or control worryin = Not at all Worrying too much about different things: 0 = Not at all Trouble relaxin = Not at all Being so restless that it is hard to sit still: 0 = Not at all Becoming easily annoyed or irritable: 0 = Not at all Feeling afraid as if something awful might happen: 0 = Not at all Total SILVERIO-7 score (0-4 normal; 5-9 mild; 10-14 moderate; 15-21 severe): 0 Source: Developed by Drs. Yves Burnette, Nadira Worley, Vasyl Sy and colleagues, with an educational freddie from [employer]. Physical exam (Primary Care) Vital Signs: Last Vital Signs Temp 98.7 F 03/08/25 13:10 Pulse 72 03/08/25 13:10 Resp 14 03/08/25 13:10 BP 110/80 03/08/25 13:10 Pulse Ox 97 03/08/25 13:10 Oxygen Delivery Method Room Air 03/08/25 13:10 BMI result Body Mass Index 27.1 PHQ-9: PHQ-9 Score PHQ-9: Total score 0 03/08/25 13:14 Coding Level of Care Code New Pt Level 4 (38410) Complex EM visit Add On G2211 Diagnoses Ear lesion H93.90 Erectile dysfunction N52.9 Alcohol use disorder in remission F10.91 HTN (hypertension) I10 HLD (hyperlipidemia) E78.5 Coronary artery disease I25.10 Assessment & Plan Assessment & Plan (1) Ear lesion: Code(s): H93.90 - Unspecified disorder of ear, unspecified ear Category: Medical Plan: Possibly tophi given history of alcohol use disorder and gout, however no recent flares. Will check uric acid level. However also referring to Dermatology for possible biopsy given unclear etiology and history of sun exposure (2) Erectile dysfunction: Code(s): N52.9 - Male erectile dysfunction, unspecified Category: Medical Plan: Controlled with sildenafil. We will continue sildenafil 100 mg daily. Advised this is a high dose of the medication and should be mindful of low blood pressures/lightheadedness (3) Alcohol use disorder in remission: Code(s): F10.91 - Alcohol use, unspecified, in remission Category: Medical Plan: Sober x7 years. Congratulated on this. (4) HTN (hypertension): Code(s): I10 - Essential (primary) hypertension Category: Medical Plan: Controlled. Continue lisinopril 10 mg daily and metoprolol 50 mg ER. Continue low-sodium diet. BMP ordered to evaluate renal function and electrolyte levels (5) HLD (hyperlipidemia): Code(s): E78.5 - Hyperlipidemia, unspecified Category: Medical Plan: Lipid panel ordered. Continue atorvastatin 80 mg daily. Diet low in saturated fat and 1 healthy oils recommended (6) Coronary artery disease: Comment: Foll'd by Dr. Nick- [facility] Code(s): I25.10 - Atherosclerotic heart disease of [place] coronary artery without angina pectoris Category: Medical Plan: Stable. No recent anginal chest pain. Continue following with [facility] annually, last note reviewed from 08/2024. Continue baby aspirin, metoprolol, statin. Plan Follow-up in the office, labs to be completed following visit. Continue following with Cardiology and take medications as prescribed. Orders: Orders Liver Panel Today E78.5 - Hyperlipidemia, unspecified, I10 - Essential (primary) hypertension, I21.9 - Acute myocardial infarction, unspecified, M10.9 - Gout, unspecified, R79.89 - Other specified abnormal findings of blood chemistry Basic Metabolic Panel Today E78.5 - Hyperlipidemia, unspecified, I10 - Essential (primary) hypertension, I21.9 - Acute myocardial infarction, unspecified, M10.9 - Gout, unspecified, R79.89 - Other specified abnormal findings of blood chemistry Complete Blood Count Auto Diff Today E78.5 - Hyperlipidemia, unspecified, I10 - Essential (primary) hypertension, I21.9 - Acute myocardial infarction, unspecified, M10.9 - Gout, unspecified, R79.89 - Other specified abnormal findings of blood chemistry Hemoglobin A1c Today E78.5 - Hyperlipidemia, unspecified, I10 - Essential (primary) hypertension, I21.9 - Acute myocardial infarction, unspecified, M10.9 - Gout, unspecified, R79.89 - Other specified abnormal findings of blood chemistry Lipid Panel Today E78.5 - Hyperlipidemia, unspecified, I10 - Essential (primary) hypertension, I21.9 - Acute myocardial infarction, unspecified, M10.9 - Gout, unspecified, R79.89 - Other specified abnormal findings of blood chemistry TSH reflex Free T4 Today E78.5 - Hyperlipidemia, unspecified, I10 - Essential (primary) hypertension, I21.9 - Acute myocardial infarction, unspecified, M10.9 - Gout, unspecified, R79.89 - Other specified abnormal findings of blood chemistry Uric Acid Today E78.5 - Hyperlipidemia, unspecified, I10 - Essential (primary) hypertension, I21.9 - Acute myocardial infarction, unspecified, M10.9 - Gout, unspecified, R79.89 - Other specified abnormal findings of blood chemistry Referrals Dermatology Referral H93.90 - Unspecified disorder of ear, unspecified ear
--- OUTSIDE RECORDS SUMMARY | 2025-03-08 13:05 | XMS_ITS ---
Author Organization [facility] Address [address] [place] [id number] Care Team Providers Care Health Type Technician Name Role Phone Ion Alvarado MD Primary Care Provider Yves Caldwell [phone] REASON FOR VISIT refill cholestrymine powder Medications Medication SIG (Take, Route, Frequency, Duration) Notes Start Date End Date Status Cholestyramine 4 GM/DOSE 1 scoop in a gl ass of water or Hartley Juice Orally Once or twice a day for diarrhea for 90 days 01/27/2024 Active Encounters Encounter Location Date Provider Diagnosis [facility] [address] [place] [id number] 11/15/2024 Yves Solomon Plan Of Treatment Medication Medication Name Sig Start Date Stop Date Notes Cholestyramine 4 GM/DOSE 1 scoop in a gl ass of water or Hartley Juice Orally Once or twice a day for diarrhea for 90 days 01/27/2024 Progress Notes * EUN MARIAMSISOB:1975 (48 yo M)Acc No.[id number]:11/15/2024 Patient:?RANJANJUSTINANIRAV Emery :1975???Age:48 Y???Sex:Male Address:[address] [place] [address] * Refills? Refill Cholestyramine Powder, 4 GM/DOSE, Orally, 3, 1 scoop in a glass of water or Hartley Juice, Once or twice a day for diarrhea, 90 days, Refills=3 * true * Date:? Generated for Kp llanos/Andie/eTransmitting on:?03/08/2025 01:04 PM EDT
[2025-03-08 13:10] VITALS: BP 110/80; PULSE 72; RESP 14; TEMP 37.1; O2SAT 97; BMI 27.1
[2025-03-08 13:22] VITALS: BP 112/76
== END 2025-03-08 13:28 | disposition home or self-care (01) ==
LOC: HO.HMCHD 13:02
PROVIDERS: PCP Physician Assistant; Visit Provider Physician Assistant
DX: H93.90 Unspecified disorder of ear, unspecified ear (principal); N52.9 Male erectile dysfunction, unspecified; F10.91 Alcohol use, unspecified, in remission; I10 Essential (primary) hypertension; E78.5 Hyperlipidemia, unspecified; I25.10 Atherosclerotic heart disease of native coronary artery without angina pectoris

== ENCOUNTER → 2025-03-08 13:01 | Outpatient (BNVA) | payer BC, SELFPAY | PROVIDERS: PCP Physician Assistant; Visit Provider Physician Assistant ==